=== PATIENT | male | born 1960 | race Two or more races ===

== ENCOUNTER → 2017-02-04 | Outpatient (REF) | payer BC ==
[2017-02-04 21:26] LABS: MEAN CORPUSCULAR HEMOGLOBIN 33.1 pg (27.0-33.0); MEAN CORPUSCULAR HGB CONC 34.1 g/dl (32.0-36.5); MEAN CORPUSCULAR VOLUME 97.1 fl (80.0-96.0); RED CELL DISTRIBUTION WIDTH 12.3 % (11.5-14.5); WHITE BLOOD COUNT 6.9 K/mm3 (4.0-10.0)
[2017-02-04 21:52] LABS: ALBUMIN/GLOBULIN RATIO 1.11 (1.00-1.93); ALKALINE PHOSPHATASE 93 U/L (45-117); ALT/SGPT 94 U/L (12-78); ANION GAP 7 MEQ/L (8-16); AST/SGOT 38 U/L (15-37); BILIRUBIN,TOTAL 0.5 MG/DL (0.2-1.0); BLOOD UREA NITROGEN 14 MG/DL (7-18); CALCIUM LEVEL 9.5 MG/DL (8.5-10.1); CARBON DIOXIDE LEVEL 30 MEQ/L (21-32); CHLORIDE LEVEL 105 MEQ/L (98-107); CHOLESTEROL LEVEL 239 MG/DL (<200); CREATININE FOR GFR 0.88 MG/DL (0.70-1.30); GLOMERULAR FILTRATION RATE > 60.0 (>56); GLUCOSE, FASTING 95 MG/DL (70-105); POTASSIUM SERUM 4.3 MEQ/L (3.5-5.1); SODIUM LEVEL 142 MEQ/L (136-145); TOTAL PROTEIN 7.6 GM/DL (6.4-8.2); TRIGLYCERIDES LEVEL 71 MG/DL (<150)
== END ==
LOC: M SFHCADAM 15:50
PROVIDERS: ATTEND Family Medicine
DX: I49.1 Atrial premature depolarization (principal); Z13.220 Encounter for screening for lipoid disorders
CPT/HCPCS: 80053; 80061; 84439; 84443; 85027; G0103

== ENCOUNTER → 2017-06-23 | Outpatient (CLI) | payer BC ==
[2017-06-23 21:08] LABS: BLOOD UREA NITROGEN 13 MG/DL (7-18); GLOMERULAR FILTRATION RATE > 60.0 (>56); URIC ACID 7.1 MG/DL (3.5-7.2)
== END ==
LOC: M ADAMS 13:31
PROVIDERS: ATTEND Physician Assistant Medical
DX: E78.5 Hyperlipidemia, unspecified (principal); M10.071 Idiopathic gout, right ankle and foot; M25.571 Pain in right ankle and joints of right foot

== ENCOUNTER → 2017-06-23 | Outpatient (REF) | payer BC | LOC: M SFHCADAM 13:42 | PROVIDERS: ATTEND Family Medicine | DX: E78.5 Hyperlipidemia, unspecified (principal) ==

== ENCOUNTER → 2017-11-05 | Outpatient (REF) | payer BC ==
[2017-11-05 13:27] LABS: MEAN CORPUSCULAR HEMOGLOBIN 32.1 pg (27.0-33.0); MEAN CORPUSCULAR HGB CONC 33.5 g/dl (32.0-36.5); MEAN CORPUSCULAR VOLUME 95.9 fl (80.0-96.0); PLATELET COUNT, AUTOMATED 197 10^3/uL (150-450); RED CELL DISTRIBUTION WIDTH 12.7 % (11.5-14.5); WHITE BLOOD COUNT 7.6 10^3/uL (4.0-10.0)
[2017-11-05 13:54] LABS: ALBUMIN 3.9 GM/DL (3.2-5.2); ALBUMIN/GLOBULIN RATIO 1.05 (1.00-1.93); ALKALINE PHOSPHATASE 103 U/L (45-117); ALT/SGPT 152 U/L (12-78); ANION GAP 7 MEQ/L (8-16); AST/SGOT 66 U/L (7-37); BILIRUBIN,TOTAL 0.5 MG/DL (0.2-1.0); BLOOD UREA NITROGEN 16 MG/DL (7-18); CALCIUM LEVEL 9.2 MG/DL (8.5-10.1); CARBON DIOXIDE LEVEL 29 MEQ/L (21-32); CHLORIDE LEVEL 103 MEQ/L (98-107); CHOLESTEROL LEVEL 176 MG/DL (<200); CREATININE FOR GFR 0.84 MG/DL (0.70-1.30); FREE T4 0.87 NG/DL (0.76-1.46); GLOMERULAR FILTRATION RATE > 60.0 (>56); GLUCOSE, FASTING 123 MG/DL (70-105); POTASSIUM SERUM 4.4 MEQ/L (3.5-5.1); SODIUM LEVEL 139 MEQ/L (136-145); TOTAL PROTEIN 7.6 GM/DL (6.4-8.2); TRIGLYCERIDES LEVEL 66 MG/DL (<150); URIC ACID 6.3 MG/DL (3.5-7.2)
== END ==
LOC: M SFHCADAM 10:16
PROVIDERS: ATTEND Family Medicine
DX: M10.9 Gout, unspecified (principal); E78.5 Hyperlipidemia, unspecified

== ENCOUNTER 2018-08-23 16:10 | Inpatient (IN) | payer BC ==
[2018-08-23 17:15] LABS: BASO % 0.1 % (0.0-1.0); HEMATOCRIT 46.1 % (42.0-52.0); HEMOGLOBIN 16.3 g/dl (13.5-17.5); IMMATURE GRANULOCYTE % 0.7 % (0-3.0); LYMPH # 1.3 10^3/uL (1.5-4.5); LYMPH % 4.7 % (24.0-44.0); MEAN CORPUSCULAR HGB CONC 35.4 g/dl (32.0-36.5); MONO # 0.8 10^3/uL (0.0-0.8); MONO % 3.1 % (0.0-5.0); NEUTROPHILS # 24.5 10^3/uL (1.8-7.7); NEUTROPHILS % 91.4 % (36.0-66.0); PLATELET COUNT, AUTOMATED 170 10^3/uL (150-450); RED CELL DISTRIBUTION WIDTH 12.3 % (11.5-14.5); WHITE BLOOD COUNT 26.8 10^3/uL (4.0-10.0)
[2018-08-23 17:42] LABS: INR 1.11; PROTHROMBIN TIME 14.4 SECONDS (12.1-14.4)
[2018-08-23 17:43] LABS: ALBUMIN 3.4 GM/DL (3.2-5.2); ALBUMIN/GLOBULIN RATIO 0.92 (1.00-1.93); ALKALINE PHOSPHATASE 89 U/L (45-117); ALT/SGPT 57 U/L (12-78); ANION GAP 11 MEQ/L (8-16); AST/SGOT 21 U/L (7-37); BILIRUBIN,DIRECT 0.4 MG/DL (0.0-0.2); BILIRUBIN,TOTAL 1.3 MG/DL (0.2-1.0); BLOOD UREA NITROGEN 14 MG/DL (7-18); CALCIUM LEVEL 9.2 MG/DL (8.5-10.1); CARBON DIOXIDE LEVEL 25 MEQ/L (21-32); CHLORIDE LEVEL 101 MEQ/L (98-107); CREATININE FOR GFR 1.15 MG/DL (0.70-1.30); GLOMERULAR FILTRATION RATE > 60.0 (>56); GLUCOSE, FASTING 126 MG/DL (70-100); LIPASE 126 U/L (73-393); POTASSIUM SERUM 4.3 MEQ/L (3.5-5.1); SODIUM LEVEL 137 MEQ/L (136-145); TOTAL PROTEIN 7.1 GM/DL (6.4-8.2)
[2018-08-23] MEDS: NS 1,000 ML IV ×2 (19:29→19:41)
[2018-08-23] MEDS ORDERED: ISOVUE-370 76% 100ML VIAL (Q9967) As Ordered (19:30)
[2018-08-23] MEDS: MORPHINE 4 MG/ML 1ML VIAL/SYRINGE (J2270) IV ×3 (19:31→22:25)
[2018-08-23] MEDS: ONDANSETRON 4MG/2ML VIAL (J2405) IV (19:32)
[2018-08-23] MEDS: GASTROGRAFIN SOLUTION 30ML PO ×2 (19:40→20:10)
[2018-08-23] MEDS: CIPROFLOXACIN 400 MG in APPROPRIATE DILUENT 1 EA IV ×2 (21:00→21:14)
[2018-08-23] MEDS: metroNIDAZOLE 500 MG in APPROPRIATE DILUENT 1 EA IV (21:14)
[2018-08-23] MEDS ORDERED: ONDANSETRON 4MG/2ML VIAL (J2405) IV (21:45)
[2018-08-23] MEDS ORDERED: PERCOCET 5MG/325MG TAB PO (21:45)
[2018-08-23] MEDS: PIPERACILLIN/TAZOBACTAM SOD 3.375 GM in D5W MINI-BAG PLUS 50 ML IV (22:26)
[2018-08-24] MEDS: LR 1,000 ML IV ×5 (00:04→23:23)
[2018-08-24] MEDS: KETOROLAC 30 MG/ML VIAL (J1885) IV ×4 (00:06→20:38)
[2018-08-24] MEDS: MORPHINE 4 MG/ML 1ML VIAL/SYRINGE (J2270) IV ×7 (02:04→23:09)
[2018-08-24] MEDS: PIPERACILLIN/TAZOBACTAM SOD 3.375 GM in D5W MINI-BAG PLUS 50 ML IV ×4 (04:11→23:12)
[2018-08-24] MEDS: ACETAMINOPHEN TAB 650MG DOSE (2X325MG) PO ×2 (04:29→09:28)
[2018-08-24 06:49] LABS: BASO % 0.2 % (0.0-1.0); EOS % 0.1 % (0.0-3.0); HEMATOCRIT 46.2 % (42.0-52.0); HEMOGLOBIN 15.6 g/dl (13.5-17.5); IMMATURE GRANULOCYTE % 1.2 % (0-3.0); LYMPH # 0.6 10^3/uL (1.5-4.5); LYMPH % 3.4 % (24.0-44.0); MEAN CORPUSCULAR HEMOGLOBIN 33.3 pg (27.0-33.0); MEAN CORPUSCULAR HGB CONC 33.8 g/dl (32.0-36.5); MEAN CORPUSCULAR VOLUME 98.5 fl (80.0-96.0); MONO # 0.5 10^3/uL (0.0-0.8); MONO % 3.3 % (0.0-5.0); NEUTROPHILS # 14.8 10^3/uL (1.8-7.7); NEUTROPHILS % 91.8 % (36.0-66.0); PLATELET COUNT, AUTOMATED 169 10^3/uL (150-450); RED BLOOD COUNT 4.69 10^6/uL (4.30-6.10); RED CELL DISTRIBUTION WIDTH 12.5 % (11.5-14.5); WHITE BLOOD COUNT 16.1 10^3/uL (4.0-10.0)
[2018-08-24 07:08] LABS: ANION GAP 8 MEQ/L (8-16); BLOOD UREA NITROGEN 22 MG/DL (7-18); CALCIUM LEVEL 8.5 MG/DL (8.5-10.1); CARBON DIOXIDE LEVEL 26 MEQ/L (21-32); CHLORIDE LEVEL 103 MEQ/L (98-107); GLOMERULAR FILTRATION RATE > 60.0 (>56); GLUCOSE, FASTING 131 MG/DL (70-100); POTASSIUM SERUM 4.2 MEQ/L (3.5-5.1); SODIUM LEVEL 137 MEQ/L (136-145)
[2018-08-24] MEDS: FLUBLOK(EGG FREE)(QUAD)INFLUENZA VACC 0.5ML SYRINGE (90682)18YRS&OLDER IM (09:14)
[2018-08-24] MEDS: ENOXAPARIN 40 MG/0.4 ML SYRINGE (J1650) SC (09:15)
[2018-08-24] MEDS: PERCOCET 5MG/325MG TAB PO ×2 (11:10→18:48)
[2018-08-25] MEDS: LR 1,000 ML IV ×4 (02:14→21:30)
[2018-08-25] MEDS: PERCOCET 5MG/325MG TAB PO (02:15)
[2018-08-25] MEDS: KETOROLAC 30 MG/ML VIAL (J1885) IV ×3 (03:15→23:35)
[2018-08-25] MEDS: PIPERACILLIN/TAZOBACTAM SOD 3.375 GM in D5W MINI-BAG PLUS 50 ML IV ×4 (05:56→23:11)
[2018-08-25 06:41] LABS: HEMATOCRIT 44.2 % (42.0-52.0); HEMOGLOBIN 15.2 g/dl (13.5-17.5); MEAN CORPUSCULAR HEMOGLOBIN 33.6 pg (27.0-33.0); MEAN CORPUSCULAR HGB CONC 34.4 g/dl (32.0-36.5); MEAN CORPUSCULAR VOLUME 97.6 fl (80.0-96.0); PLATELET COUNT, AUTOMATED 135 10^3/uL (150-450); RED BLOOD COUNT 4.53 10^6/uL (4.30-6.10); RED CELL DISTRIBUTION WIDTH 12.6 % (11.5-14.5); WHITE BLOOD COUNT 12.9 10^3/uL (4.0-10.0)
[2018-08-25 06:54] LABS: ADD MANUAL DIFFER YES; DIFF SLIDE NUMBER 71; POSITIVE MORPH POS FLAG
[2018-08-25 07:09] LABS: ANION GAP 8 MEQ/L (8-16); BLOOD UREA NITROGEN 31 MG/DL (7-18); CALCIUM LEVEL 8.6 MG/DL (8.5-10.1); CARBON DIOXIDE LEVEL 26 MEQ/L (21-32); CHLORIDE LEVEL 103 MEQ/L (98-107); CREATININE FOR GFR 1.34 MG/DL (0.70-1.30); GLOMERULAR FILTRATION RATE 58.3 (>56); GLUCOSE, FASTING 101 MG/DL (70-100); POTASSIUM SERUM 4.1 MEQ/L (3.5-5.1); SODIUM LEVEL 137 MEQ/L (136-145)
[2018-08-25 07:46] LABS: BANDS 1 % (< 11); BASOPHILS 44 % (0-4); LYMPHOCYTES 1 % (16-52); MONOCYTES 4 % (0-8); NEUTROPHILS 50 % (35-75); PLATELET ESTIMATE NORMAL (NORMAL)
[2018-08-25] MEDS: ENOXAPARIN 40 MG/0.4 ML SYRINGE (J1650) SC (09:32)
[2018-08-25] MEDS ORDERED: GLYCOPYRROLATE INJ 0.2 MG/ML 2 ML VIAL As Ordered (16:10)
[2018-08-25] MEDS ORDERED: PROPOFOL 200 MG/20 ML VIAL As Ordered (16:10)
[2018-08-25] MEDS ORDERED: LIDOCAINE 2% JELLY 30 ML As Ordered (16:10)
[2018-08-25] MEDS ORDERED: LIDOCAINE 2% INJ 100 MG/5 ML SDV (FOR ANES.) As Ordered (16:10)
[2018-08-25] MEDS ORDERED: dexameTHASONE 4 MG/ML 1ML VIAL (J1100) As Ordered (16:10)
[2018-08-25] MEDS ORDERED: ROCURONIUM BROMIDE 50 MG/5 ML VIAL As Ordered ×3 (16:10→19:57)
[2018-08-25] MEDS ORDERED: NEOSTIGMINE 10 MG/10 ML VIAL (J2710) As Ordered (16:10)
[2018-08-25] MEDS ORDERED: MIDAZOLAM INJ 2 MG/2 ML VIAL (J2250) As Ordered (16:10)
[2018-08-25] MEDS ORDERED: ONDANSETRON 4MG/2ML VIAL (J2405) As Ordered (16:10)
[2018-08-25] MEDS ORDERED: fentaNYL 100 MCG/2 ML INJECTION (J3010) As Ordered (16:10)
[2018-08-25] MEDS ORDERED: PHENYLEPHRINE INJ 10MG/ML VIAL (J2370) As Ordered (16:19)
[2018-08-25] MEDS ORDERED: HYDROmorphone HCL 2 MG/ML 1ML VIAL (J1170) As Ordered (17:09)
[2018-08-25] MEDS ORDERED: ZOSYN 3.375 GM VIAL (J2543) As Ordered (17:18)
[2018-08-25] MEDS ORDERED: LABETALOL HCL 100 MG/20 ML VIAL As Ordered (17:37)
[2018-08-25] MEDS ORDERED: fentaNYL 250 MCG/5 ML INJECTION (J3010) As Ordered (19:50)
[2018-08-25] MEDS ORDERED: fentaNYL 100 MCG/2 ML INJECTION (J3010) IV (21:30)
[2018-08-25] MEDS ORDERED: ONDANSETRON 4MG/2ML VIAL (J2405) IV (21:30)
[2018-08-25] MEDS ORDERED: MORPHINE 10 MG/ML 1ML VIAL (J2270) IV (21:30)
[2018-08-26] MEDS: PIPERACILLIN/TAZOBACTAM SOD 3.375 GM in D5W MINI-BAG PLUS 50 ML IV ×4 (05:20→22:35)
[2018-08-26] MEDS: LR 1,000 ML IV ×5 (06:23→22:36)
[2018-08-26 06:36] LABS: HEMATOCRIT 40.2 % (42.0-52.0); HEMOGLOBIN 14.1 g/dl (13.5-17.5); MEAN CORPUSCULAR HEMOGLOBIN 33.7 pg (27.0-33.0); MEAN CORPUSCULAR HGB CONC 35.1 g/dl (32.0-36.5); MEAN CORPUSCULAR VOLUME 95.9 fl (80.0-96.0); PLATELET COUNT, AUTOMATED 130 10^3/uL (150-450); RED BLOOD COUNT 4.19 10^6/uL (4.30-6.10); RED CELL DISTRIBUTION WIDTH 12.8 % (11.5-14.5); WHITE BLOOD COUNT 13.8 10^3/uL (4.0-10.0)
[2018-08-26 06:46] LABS: ADD MANUAL DIFFER YES; DIFF SLIDE NUMBER 52; POSITIVE MORPH POS FLAG
[2018-08-26 07:10] LABS: ATYPICAL LYMPH 3 % (0-5); BANDS 3 % (< 11); LYMPHOCYTES 2 % (16-52); METAMYELOCYTES 3 % (0-0); MONOCYTES 2 % (0-8); NEUTROPHILS 87 % (35-75); PLATELET CLUMPS SMALL AMT; PLATELET ESTIMATE NORMAL (NORMAL)
[2018-08-26 07:11] LABS: TOXIC GRANULATION 1+
[2018-08-26 07:41] LABS: ANION GAP 5 MEQ/L (8-16); BLOOD UREA NITROGEN 31 MG/DL (7-18); CARBON DIOXIDE LEVEL 28 MEQ/L (21-32); CHLORIDE LEVEL 104 MEQ/L (98-107); CREATININE FOR GFR 1.07 MG/DL (0.70-1.30); GLOMERULAR FILTRATION RATE > 60.0 (>56); GLUCOSE, FASTING 155 MG/DL (70-100); POTASSIUM SERUM 4.3 MEQ/L (3.5-5.1); SODIUM LEVEL 137 MEQ/L (136-145)
[2018-08-26] MEDS: OXAZEPAM 10 MG CAP PO ×2 (10:04→20:56)
[2018-08-26] MEDS: ENOXAPARIN 40 MG/0.4 ML SYRINGE (J1650) SC (10:04)
[2018-08-26] MEDS: KETOROLAC 30 MG/ML VIAL (J1885) IV ×2 (13:06→20:57)
[2018-08-26] MEDS: MORPHINE 10 MG/ML 1ML VIAL (J2270) IV (17:28)
[2018-08-27] MEDS: PIPERACILLIN/TAZOBACTAM SOD 3.375 GM in D5W MINI-BAG PLUS 50 ML IV ×4 (04:10→23:49)
[2018-08-27 05:32] LABS: HEMATOCRIT 36.7 % (42.0-52.0); HEMOGLOBIN 12.6 g/dl (13.5-17.5); MEAN CORPUSCULAR HGB CONC 34.3 g/dl (32.0-36.5); MEAN CORPUSCULAR VOLUME 96.1 fl (80.0-96.0); PLATELET COUNT, AUTOMATED 142 10^3/uL (150-450); RED BLOOD COUNT 3.82 10^6/uL (4.30-6.10); RED CELL DISTRIBUTION WIDTH 12.8 % (11.5-14.5); WHITE BLOOD COUNT 14.4 10^3/uL (4.0-10.0)
[2018-08-27 05:34] LABS: POSITIVE MORPH POS FLAG
[2018-08-27 05:35] LABS: ADD MANUAL DIFFER YES; DIFF SLIDE NUMBER 26
[2018-08-27 05:53] LABS: ATYPICAL LYMPH 2 % (0-5); LYMPHOCYTES 11 % (16-52); MONOCYTES 2 % (0-8); NEUTROPHILS 85 % (35-75); PLATELET ESTIMATE NORMAL (NORMAL)
[2018-08-27 05:56] LABS: TOXIC GRANULATION 1+
[2018-08-27 06:14] LABS: ANION GAP 6 MEQ/L (8-16); BLOOD UREA NITROGEN 34 MG/DL (7-18); CALCIUM LEVEL 8.8 MG/DL (8.5-10.1); CARBON DIOXIDE LEVEL 33 MEQ/L (21-32); CHLORIDE LEVEL 104 MEQ/L (98-107); GLOMERULAR FILTRATION RATE > 60.0 (>56); GLUCOSE, FASTING 117 MG/DL (70-100); POTASSIUM SERUM 3.9 MEQ/L (3.5-5.1); SODIUM LEVEL 143 MEQ/L (136-145)
[2018-08-27] MEDS: OXAZEPAM 10 MG CAP PO ×2 (07:47→20:15)
[2018-08-27] MEDS: PANTOPRAZOLE 40MG INJ (PROTONIX) (C9113) IV (07:48)
[2018-08-27] MEDS: PERCOCET 5MG/325MG TAB PO ×3 (07:48→23:35)
[2018-08-27] MEDS: ENOXAPARIN 40 MG/0.4 ML SYRINGE (J1650) SC (07:48)
[2018-08-27] MEDS: LR 1,000 ML IV (07:48)
[2018-08-27] MEDS: KCL 20MEQ IN D5/0.45NS 1000ML 1,000 ML IV ×2 (11:28→21:20)
[2018-08-27] MEDS: KETOROLAC 30 MG/ML VIAL (J1885) IV ×2 (11:57→20:15)
[2018-08-28] MEDS: KCL 20MEQ IN D5/0.45NS 1000ML 1,000 ML IV ×3 (03:00→16:58)
[2018-08-28] MEDS: PIPERACILLIN/TAZOBACTAM SOD 3.375 GM in D5W MINI-BAG PLUS 50 ML IV ×4 (04:26→23:16)
[2018-08-28 06:43] LABS: HEMATOCRIT 37.6 % (42.0-52.0); HEMOGLOBIN 13.2 g/dl (13.5-17.5); MEAN CORPUSCULAR HEMOGLOBIN 33.3 pg (27.0-33.0); MEAN CORPUSCULAR HGB CONC 35.1 g/dl (32.0-36.5); MEAN CORPUSCULAR VOLUME 94.9 fl (80.0-96.0); PLATELET COUNT, AUTOMATED 174 10^3/uL (150-450); RED BLOOD COUNT 3.96 10^6/uL (4.30-6.10); RED CELL DISTRIBUTION WIDTH 13.2 % (11.5-14.5); WHITE BLOOD COUNT 15.4 10^3/uL (4.0-10.0)
[2018-08-28 06:58] LABS: ADD MANUAL DIFFER YES; DIFF SLIDE NUMBER 15; POS COUNT POS FLAG; POSITIVE MORPH POS FLAG
[2018-08-28 07:05] LABS: ANION GAP 8 MEQ/L (8-16); BLOOD UREA NITROGEN 27 MG/DL (7-18); CALCIUM LEVEL 8.5 MG/DL (8.5-10.1); CARBON DIOXIDE LEVEL 27 MEQ/L (21-32); CHLORIDE LEVEL 105 MEQ/L (98-107); CREATININE FOR GFR 0.82 MG/DL (0.70-1.30); GLOMERULAR FILTRATION RATE > 60.0 (>56); GLUCOSE, FASTING 124 MG/DL (70-100); POTASSIUM SERUM 4.1 MEQ/L (3.5-5.1); SODIUM LEVEL 140 MEQ/L (136-145)
[2018-08-28 07:26] LABS: ATYPICAL LYMPH 3 % (0-5); BANDS 1 % (< 11); LYMPHOCYTES 16 % (16-52); MONOCYTES 3 % (0-8); NEUTROPHILS 77 % (35-75); PLATELET ESTIMATE NORMAL (NORMAL)
[2018-08-28] MEDS: PERCOCET 5MG/325MG TAB PO ×3 (08:20→20:15)
[2018-08-28] MEDS: OXAZEPAM 10 MG CAP PO ×2 (08:21→20:15)
[2018-08-28] MEDS: ENOXAPARIN 40 MG/0.4 ML SYRINGE (J1650) SC (08:21)
[2018-08-28] MEDS: PANTOPRAZOLE 40MG INJ (PROTONIX) (C9113) IV (08:21)
[2018-08-28] MEDS: KETOROLAC 30 MG/ML VIAL (J1885) IV ×2 (11:24→18:26)
[2018-08-29] MEDS: PERCOCET 5MG/325MG TAB PO ×4 (02:04→22:00)
[2018-08-29] MEDS: KCL 20MEQ IN D5/0.45NS 1000ML 1,000 ML IV ×3 (02:05→20:03)
[2018-08-29] MEDS: MORPHINE 10 MG/ML 1ML VIAL (J2270) IV (04:59)
[2018-08-29] MEDS: PIPERACILLIN/TAZOBACTAM SOD 3.375 GM in D5W MINI-BAG PLUS 50 ML IV ×4 (04:59→22:00)
[2018-08-29 06:51] LABS: HEMATOCRIT 39.7 % (42.0-52.0); HEMOGLOBIN 13.8 g/dl (13.5-17.5); MEAN CORPUSCULAR HEMOGLOBIN 33.3 pg (27.0-33.0); MEAN CORPUSCULAR HGB CONC 34.8 g/dl (32.0-36.5); MEAN CORPUSCULAR VOLUME 95.9 fl (80.0-96.0); PLATELET COUNT, AUTOMATED 200 10^3/uL (150-450); RED BLOOD COUNT 4.14 10^6/uL (4.30-6.10); RED CELL DISTRIBUTION WIDTH 13.3 % (11.5-14.5); WHITE BLOOD COUNT 18.6 10^3/uL (4.0-10.0)
[2018-08-29 06:54] LABS: ADD MANUAL DIFFER YES; DIFF SLIDE NUMBER 13; POS COUNT POS FLAG; POSITIVE MORPH POS FLAG
[2018-08-29 07:14] LABS: BANDS 2 % (< 11); EOSINOPHILS 2 % (0-5); LYMPHOCYTES 14 % (16-52); METAMYELOCYTES 2 % (0-0); MONOCYTES 3 % (0-8); MYELOCYTES 1 % (0-0); NEUTROPHILS 76 % (35-75); PLATELET ESTIMATE NORMAL (NORMAL)
[2018-08-29 07:24] LABS: ANION GAP 6 MEQ/L (8-16); BLOOD UREA NITROGEN 17 MG/DL (7-18); C REACTIVE PROTEIN QUANTITATIV 7.89 MG/DL (0.00-0.30); CALCIUM LEVEL 8.1 MG/DL (8.5-10.1); CARBON DIOXIDE LEVEL 25 MEQ/L (21-32); CHLORIDE LEVEL 105 MEQ/L (98-107); CREATININE FOR GFR 0.75 MG/DL (0.70-1.30); GLOMERULAR FILTRATION RATE > 60.0 (>56); GLUCOSE, FASTING 119 MG/DL (70-100); POTASSIUM SERUM 4.3 MEQ/L (3.5-5.1); SODIUM LEVEL 136 MEQ/L (136-145)
[2018-08-29] MEDS: OXAZEPAM 10 MG CAP PO ×2 (10:25→20:03)
[2018-08-29] MEDS: ENOXAPARIN 40 MG/0.4 ML SYRINGE (J1650) SC (10:26)
[2018-08-29] MEDS: PANTOPRAZOLE 40MG INJ (PROTONIX) (C9113) IV (10:26)
[2018-08-30] MEDS: KCL 20MEQ IN D5/0.45NS 1000ML 1,000 ML IV (04:52)
[2018-08-30] MEDS: PIPERACILLIN/TAZOBACTAM SOD 3.375 GM in D5W MINI-BAG PLUS 50 ML IV ×4 (04:52→23:07)
[2018-08-30] MEDS: PANTOPRAZOLE 40MG INJ (PROTONIX) (C9113) IV (09:26)
[2018-08-30] MEDS: ENOXAPARIN 40 MG/0.4 ML SYRINGE (J1650) SC (09:27)
[2018-08-30] MEDS: OXAZEPAM 10 MG CAP PO ×2 (09:27→20:01)
[2018-08-30] MEDS: PERCOCET 5MG/325MG TAB PO ×3 (09:29→23:06)
[2018-08-31] MEDS: PERCOCET 5MG/325MG TAB PO ×6 (04:36→21:51)
[2018-08-31] MEDS: PIPERACILLIN/TAZOBACTAM SOD 3.375 GM in D5W MINI-BAG PLUS 50 ML IV ×4 (04:36→23:12)
[2018-08-31 06:52] LABS: HEMATOCRIT 39.7 % (42.0-52.0); HEMOGLOBIN 13.7 g/dl (13.5-17.5); MEAN CORPUSCULAR HEMOGLOBIN 32.9 pg (27.0-33.0); MEAN CORPUSCULAR HGB CONC 34.5 g/dl (32.0-36.5); MEAN CORPUSCULAR VOLUME 95.4 fl (80.0-96.0); PLATELET COUNT, AUTOMATED 279 10^3/uL (150-450); RED BLOOD COUNT 4.16 10^6/uL (4.30-6.10); RED CELL DISTRIBUTION WIDTH 13.5 % (11.5-14.5); WHITE BLOOD COUNT 18.6 10^3/uL (4.0-10.0)
[2018-08-31 06:54] LABS: ADD MANUAL DIFFER YES; DIFF SLIDE NUMBER 98; POS COUNT POS FLAG; POSITIVE MORPH POS FLAG
[2018-08-31 07:13] LABS: EOSINOPHILS 2 % (0-5); LYMPHOCYTES 12 % (16-52); MONOCYTES 1 % (0-8); NEUTROPHILS 85 % (35-75)
[2018-08-31 07:14] LABS: ANION GAP 7 MEQ/L (8-16); BLOOD UREA NITROGEN 10 MG/DL (7-18); CALCIUM LEVEL 8.5 MG/DL (8.5-10.1); CARBON DIOXIDE LEVEL 24 MEQ/L (21-32); CHLORIDE LEVEL 104 MEQ/L (98-107); GLOMERULAR FILTRATION RATE > 60.0 (>56); GLUCOSE, FASTING 110 MG/DL (70-100); PLATELET ESTIMATE NORMAL (NORMAL); POTASSIUM SERUM 4.5 MEQ/L (3.5-5.1); SODIUM LEVEL 135 MEQ/L (136-145)
[2018-08-31] MEDS: GASTROGRAFIN SOLUTION 30ML PO ×2 (09:27→10:02)
[2018-08-31] MEDS: ENOXAPARIN 40 MG/0.4 ML SYRINGE (J1650) SC (09:28)
[2018-08-31] MEDS: PANTOPRAZOLE 40MG INJ (PROTONIX) (C9113) IV (09:28)
[2018-08-31] MEDS: OXAZEPAM 10 MG CAP PO ×2 (09:28→21:36)
[2018-08-31] MEDS ORDERED: ISOVUE-370 76% 100ML VIAL (Q9967) As Ordered (11:08)
[2018-08-31 17:23] LABS: C REACTIVE PROTEIN QUANTITATIV 8.89 MG/DL (0.00-0.30)
[2018-09-01] MEDS: PERCOCET 5MG/325MG TAB PO ×5 (02:35→22:44)
[2018-09-01] MEDS: PIPERACILLIN/TAZOBACTAM SOD 3.375 GM in D5W MINI-BAG PLUS 50 ML IV (04:44)
[2018-09-01 06:25] LABS: BASO # 0.1 10^3/uL (0.0-0.2); BASO % 0.5 % (0.0-1.0); EOS # 0.4 10^3/uL (0.0-0.50); EOS % 2.9 % (0.0-3.0); HEMATOCRIT 38.8 % (42.0-52.0); HEMOGLOBIN 13.5 g/dl (13.5-17.5); LYMPH # 1.8 10^3/uL (1.5-4.5); LYMPH % 12.9 % (24.0-44.0); MEAN CORPUSCULAR HEMOGLOBIN 33.2 pg (27.0-33.0); MEAN CORPUSCULAR HGB CONC 34.8 g/dl (32.0-36.5); MEAN CORPUSCULAR VOLUME 95.3 fl (80.0-96.0); MONO # 0.6 10^3/uL (0.0-0.8); MONO % 4.2 % (0.0-5.0); NEUTROPHILS # 10.5 10^3/uL (1.8-7.7); NEUTROPHILS % 74.5 % (36.0-66.0); PLATELET COUNT, AUTOMATED 300 10^3/uL (150-450); RED BLOOD COUNT 4.07 10^6/uL (4.30-6.10); RED CELL DISTRIBUTION WIDTH 13.4 % (11.5-14.5); WHITE BLOOD COUNT 14.1 10^3/uL (4.0-10.0)
[2018-09-01 06:44] LABS: ANION GAP 7 MEQ/L (8-16); BLOOD UREA NITROGEN 13 MG/DL (7-18); CALCIUM LEVEL 8.6 MG/DL (8.5-10.1); CARBON DIOXIDE LEVEL 26 MEQ/L (21-32); CHLORIDE LEVEL 103 MEQ/L (98-107); CREATININE FOR GFR 0.77 MG/DL (0.70-1.30); GLOMERULAR FILTRATION RATE > 60.0 (>56); GLUCOSE, FASTING 122 MG/DL (70-100); POTASSIUM SERUM 4.4 MEQ/L (3.5-5.1); SODIUM LEVEL 136 MEQ/L (136-145)
[2018-09-01] MEDS: PANTOPRAZOLE 40MG INJ (PROTONIX) (C9113) IV (08:38)
[2018-09-01] MEDS: ENOXAPARIN 40 MG/0.4 ML SYRINGE (J1650) SC (08:38)
[2018-09-01] MEDS: CIPROFLOXACIN 500 MG TAB PO ×2 (08:38→18:20)
[2018-09-01] MEDS: metroNIDAZOLE (FLAGYL) 500 MG TAB PO ×3 (08:39→20:17)
[2018-09-01] MEDS: OXAZEPAM 10 MG CAP PO (10:36)
[2018-09-01] MEDS: METAMUCIL (PSYLLIUM) PACKET PO ×2 (10:55→20:17)
[2018-09-01] MEDS: MORPHINE 10 MG/ML 1ML VIAL (J2270) IV (10:55)
[2018-09-02] MEDS: PERCOCET 5MG/325MG TAB PO ×4 (05:06→22:23)
[2018-09-02] MEDS: CIPROFLOXACIN 500 MG TAB PO ×2 (05:06→17:30)
[2018-09-02] MEDS: metroNIDAZOLE (FLAGYL) 500 MG TAB PO ×3 (05:06→20:29)
[2018-09-02 06:28] LABS: BASO % 0.3 % (0.0-1.0); EOS # 0.3 10^3/uL (0.0-0.50); EOS % 2.5 % (0.0-3.0); HEMATOCRIT 39.2 % (42.0-52.0); HEMOGLOBIN 13.4 g/dl (13.5-17.5); IMMATURE GRANULOCYTE % 2.1 % (0-3.0); LYMPH # 1.5 10^3/uL (1.5-4.5); LYMPH % 10.9 % (24.0-44.0); MEAN CORPUSCULAR HEMOGLOBIN 32.7 pg (27.0-33.0); MEAN CORPUSCULAR HGB CONC 34.2 g/dl (32.0-36.5); MEAN CORPUSCULAR VOLUME 95.6 fl (80.0-96.0); MONO # 0.6 10^3/uL (0.0-0.8); MONO % 4.2 % (0.0-5.0); NEUTROPHILS # 10.9 10^3/uL (1.8-7.7); PLATELET COUNT, AUTOMATED 378 10^3/uL (150-450); RED CELL DISTRIBUTION WIDTH 13.1 % (11.5-14.5); WHITE BLOOD COUNT 13.6 10^3/uL (4.0-10.0)
[2018-09-02 06:54] LABS: ANION GAP 6 MEQ/L (8-16); BLOOD UREA NITROGEN 14 MG/DL (7-18); CARBON DIOXIDE LEVEL 27 MEQ/L (21-32); CHLORIDE LEVEL 102 MEQ/L (98-107); CREATININE FOR GFR 0.72 MG/DL (0.70-1.30); GLOMERULAR FILTRATION RATE > 60.0 (>56); GLUCOSE, FASTING 120 MG/DL (70-100); POTASSIUM SERUM 4.1 MEQ/L (3.5-5.1); SODIUM LEVEL 135 MEQ/L (136-145)
[2018-09-02] MEDS: PANTOPRAZOLE 40MG INJ (PROTONIX) (C9113) IV (08:43)
[2018-09-02] MEDS: METAMUCIL (PSYLLIUM) PACKET PO ×2 (08:43→20:29)
[2018-09-02] MEDS: ENOXAPARIN 40 MG/0.4 ML SYRINGE (J1650) SC (08:43)
[2018-09-02] MEDS: MORPHINE 10 MG/ML 1ML VIAL (J2270) IV ×2 (12:18→17:38)
[2018-09-03] MEDS: PERCOCET 5MG/325MG TAB PO (03:12)
[2018-09-03] MEDS: CIPROFLOXACIN 500 MG TAB PO (05:15)
[2018-09-03] MEDS: metroNIDAZOLE (FLAGYL) 500 MG TAB PO (05:16)
[2018-09-03 06:53] LABS: BASO # 0.1 10^3/uL (0.0-0.2); BASO % 0.4 % (0.0-1.0); EOS # 0.3 10^3/uL (0.0-0.50); EOS % 2.2 % (0.0-3.0); HEMATOCRIT 39.6 % (42.0-52.0); HEMOGLOBIN 13.5 g/dl (13.5-17.5); IMMATURE GRANULOCYTE % 1.2 % (0-3.0); LYMPH # 1.6 10^3/uL (1.5-4.5); LYMPH % 14.3 % (24.0-44.0); MEAN CORPUSCULAR HEMOGLOBIN 32.8 pg (27.0-33.0); MEAN CORPUSCULAR HGB CONC 34.1 g/dl (32.0-36.5); MEAN CORPUSCULAR VOLUME 96.4 fl (80.0-96.0); MONO # 0.6 10^3/uL (0.0-0.8); MONO % 5.6 % (0.0-5.0); NEUTROPHILS # 8.6 10^3/uL (1.8-7.7); NEUTROPHILS % 76.3 % (36.0-66.0); PLATELET COUNT, AUTOMATED 420 10^3/uL (150-450); RED BLOOD COUNT 4.11 10^6/uL (4.30-6.10); RED CELL DISTRIBUTION WIDTH 13.2 % (11.5-14.5); WHITE BLOOD COUNT 11.3 10^3/uL (4.0-10.0)
[2018-09-03] MEDS: ENOXAPARIN 40 MG/0.4 ML SYRINGE (J1650) SC (09:00)
[2018-09-03] MEDS: PANTOPRAZOLE 40MG INJ (PROTONIX) (C9113) IV (09:11)
[2018-09-03] MEDS: METAMUCIL (PSYLLIUM) PACKET PO (09:11)
== END 2018-09-03 12:21 | disposition home health service (06) | DRG 221 ==
LOC: M ED 16:10 → M ED INP 21:33 → M MSPAV 23:43
PROC: 0DBN0ZZ Excision of Sigmoid Colon, Open Approach (ICD-10-PCS; principal; 2018-08-25 12:20)
PROC: 0D1M0J4 Bypass Descending Colon to Cutaneous with Synthetic Substitute, Open Approach (ICD-10-PCS; 2018-08-25 12:20)
DX: K57.20 Diverticulitis of large intestine with perforation and abscess without bleeding (principal); K55.049 Acute infarction of large intestine, extent unspecified; Z68.41 Body mass index [BMI] 40.0-44.9, adult; E66.01 Morbid (severe) obesity due to excess calories; J43.9 Emphysema, unspecified; K56.7 Ileus, unspecified; I10 Essential (primary) hypertension; F41.9 Anxiety disorder, unspecified; M10.9 Gout, unspecified; F17.210 Nicotine dependence, cigarettes, uncomplicated; F10.10 Alcohol abuse, uncomplicated; Z89.422 Acquired absence of other left toe(s); Z79.899 Other long term (current) drug therapy

== ENCOUNTER 2018-09-12 13:13 | Emergency (ER) | payer BC ==
[2018-09-12] MEDS: MAGNESIUM CITRATE 300 ML BTL PO (15:45)
== END 2018-09-12 15:55 | disposition home or self-care (01) ==
LOC: M ED 13:13
DX: K59.00 Constipation, unspecified (principal); Z98.890 Other specified postprocedural states; Z87.891 Personal history of nicotine dependence; Z93.3 Colostomy status; Z79.899 Other long term (current) drug therapy; Z79.2 Long term (current) use of antibiotics
CPT/HCPCS: 76705

== ENCOUNTER → 2018-10-01 | Outpatient (CLI) | payer SELFPAY, BC ==
[~2018-10-01] MED LIST: GASTROGRAFIN SOLUTION 30ML (Q9963) As Ordered; ISOVUE-370 76% 100ML VIAL (Q9967) As Ordered
[2018-10-01 10:11] LABS: BASO # 0.1 10^3/uL (0.0-0.2); BASO % 1.1 % (0.0-1.0); EOS # 0.2 10^3/uL (0.0-0.50); EOS % 2.6 % (0.0-3.0); IMMATURE GRANULOCYTE % 0.1 % (0-3.0); LYMPH # 1.9 10^3/uL (1.5-4.5); LYMPH % 25.6 % (24.0-44.0); MEAN CORPUSCULAR HEMOGLOBIN 31.2 pg (27.0-33.0); MEAN CORPUSCULAR HGB CONC 32.6 g/dl (32.0-36.5); MEAN CORPUSCULAR VOLUME 95.6 fl (80.0-96.0); MONO # 0.7 10^3/uL (0.0-0.8); MONO % 8.9 % (0.0-5.0); NEUTROPHILS # 4.5 10^3/uL (1.8-7.7); NEUTROPHILS % 61.7 % (36.0-66.0); PLATELET COUNT, AUTOMATED 279 10^3/uL (150-450); RED BLOOD COUNT 4.81 10^6/uL (4.30-6.10); RED CELL DISTRIBUTION WIDTH 12.7 % (11.5-14.5); WHITE BLOOD COUNT 7.3 10^3/uL (4.0-10.0)
[2018-10-01 10:36] LABS: ALBUMIN 3.2 GM/DL (3.2-5.2); ALBUMIN/GLOBULIN RATIO 0.76 (1.00-1.93); ALKALINE PHOSPHATASE 75 U/L (45-117); ALT/SGPT 43 U/L (12-78); ANION GAP 8 MEQ/L (8-16); AST/SGOT 27 U/L (7-37); BILIRUBIN,TOTAL 0.5 MG/DL (0.2-1.0); BLOOD UREA NITROGEN 11 MG/DL (7-18); C REACTIVE PROTEIN QUANTITATIV 0.36 MG/DL (0.00-0.30); CALCIUM LEVEL 9.6 MG/DL (8.5-10.1); CARBON DIOXIDE LEVEL 29 MEQ/L (21-32); CHLORIDE LEVEL 106 MEQ/L (98-107); CREATININE FOR GFR 0.81 MG/DL (0.70-1.30); GLOMERULAR FILTRATION RATE > 60.0 (>56); GLUCOSE, FASTING 99 MG/DL (70-100); POTASSIUM SERUM 4.6 MEQ/L (3.5-5.1); SODIUM LEVEL 143 MEQ/L (136-145); TOTAL PROTEIN 7.4 GM/DL (6.4-8.2)
== END ==
LOC: M RAD 08:33
DX: K57.12 Diverticulitis of small intestine without perforation or abscess without bleeding (principal); Z90.49 Acquired absence of other specified parts of digestive tract; Z93.3 Colostomy status
CPT/HCPCS: Q9963

== ENCOUNTER → 2018-12-21 | Outpatient (CLI) | payer BC ==
[~2018-12-21] MED LIST changes: +CIPR-249 PO; +FLAG500T PO; -GASTROGRAFIN SOLUTION 30ML (Q9963) As Ordered; +GASTROGRAFIN SOLUTION 30ML (Q9963) As Ordered ONE; -ISOVUE-370 76% 100ML VIAL (Q9967) As Ordered; +ISOVUE-370 76% 100ML VIAL (Q9967) As Ordered ONE; +MAGNSOL18 PO; +META1POW PO; +PERCOCET PO; +STOOL SOFTNERS
--- NOTE | 2018-12-22 06:39 | REP ---
Clinical: History of prior diverticulitis with partial left hemicolectomy and ostomy. Technique: Axial contrast enhanced images from the lung bases to the pubic symphysis using oral (per protocol) and 100 ml Isovue 370 intravenous contrast material with coronal and sagittal re-formations. Comparison: 10/01/2018. Findings: Lung bases are clear. Visualized heart and pericardium normal. Liver, spleen, pancreas, gallbladder, bilateral adrenal glands and kidneys are normal. Evaluation of the enteric system demonstrates prior left hemicolectomy with ostomy via the left anterior abdominal wall. There is increasing eventration of the rectus sheath. There is no evidence for bowel obstruction or acute inflammatory process. Normal terminal ileum and appendix identified in the right lower quadrant. Pelvis demonstrates normal bladder and age appropriate prostate/seminal vesicles. No ascites. No free air. No adenopathy. Atherosclerotic changes of the aorta and vasculature without aneurysm or dissection. Musculoskeletal structures are intact and without focal osseous abnormality. Impression: 1. Status post left hemicolectomy and ostomy without bowel obstruction or acute inflammatory process. 2. Increasing eventration of the rectus sheath. 3. No acute abdominopelvic pathology appreciated. Specifically, no ascites, focal inflammatory stranding or adenopathy noted. Electronically Signed by Willy Carcamo MD 12/22/2018 06:32 A
== END ==
LOC: M RAD 13:06
PROVIDERS: ATTEND Surgery
DX: K57.20 Diverticulitis of large intestine with perforation and abscess without bleeding (principal); Z93.3 Colostomy status; Z90.49 Acquired absence of other specified parts of digestive tract
CPT/HCPCS: 74177; Q9963; Q9967

== ENCOUNTER 2019-01-12 07:53 | Day surgery (SDC) | payer BC ==
[~2019-01-12] VITALS: Ht 170.2 cm; Wt 100.7 kg
[~2019-01-12 07:53] MED LIST changes: -GASTROGRAFIN SOLUTION 30ML (Q9963) As Ordered ONE; -ISOVUE-370 76% 100ML VIAL (Q9967) As Ordered ONE; +LIDOCAINE 2% INJ 100 MG/5 ML SDV (FOR ANES.) As Ordered ONE; +NS 1,000 ML IV ONE; +PROPOFOL 200 MG/20 ML VIAL As Ordered ONE
[2019-01-12] MEDS ORDERED: PROPOFOL 200 MG/20 ML VIAL As Ordered ONE (10:09)
--- NOTE | 2019-01-12 10:20 | ROOR ---
Patient Name: Carlos Alberto Roberts Procedure Date: 01/12/2019 9:45 AM Date of : 1960 Age: 58 Room: [facility] Gender: Male Note Status: Finalized Procedure: Colonoscopy Indications: Follow-up of diverticulitis Providers: Harsha Baker MD Referring MD: Rudolph Gorman MD Requesting Provider: Medicines: Monitored Anesthesia Care Complications: No immediate complications. Procedure: Pre-Anesthesia Assessment: - Prior to the procedure, a History and Physical was performed, and patient medications and allergies were reviewed. The patient is competent. The risks and benefits of the procedure and the sedation options and risks were discussed with the patient. All questions were answered and informed consent was obtained. Patient identification and proposed procedure were verified by the physician, the nurse and the anesthesiologist in the endoscopy suite. Mental Status Examination: alert and oriented. Airway Examination: normal oropharyngeal airway and neck mobility. Respiratory Examination: clear to auscultation. CV Examination: normal. Prophylactic Antibiotics: The patient does not require prophylactic antibiotics. Prior Anticoagulants: The patient has taken no previous anticoagulant or antiplatelet agents. ASA Grade Assessment: II - A patient with mild systemic disease. After reviewing the risks and benefits, the patient was deemed in satisfactory condition to undergo the procedure. The anesthesia plan was to use monitored anesthesia care (MAC). Immediately prior to administration of medications, the patient was re-assessed for adequacy to receive sedatives. The heart rate, respiratory rate, oxygen saturations, blood pressure, adequacy of pulmonary ventilation, and response to care were monitored throughout the procedure. The physical status of the patient was re-assessed after the procedure. The Colonoscope was introduced through the sigmoid colostomy and advanced to the cecum, identified by appendiceal orifice and ileocecal valve. The colonoscopy was somewhat difficult due to colostomy retracted underneath skin. The patient tolerated the procedure well. The quality of the bowel preparation was good. Findings: The perianal and digital rectal examinations were normal. A few small-mouthed diverticula were found in the descending colon. A diminutive polyp was found in the descending colon. The polyp was sessile. The polyp was removed with a cold snare. Resection and retrieval were complete. Estimated blood loss was minimal. No biopsies or other specimens were collected for this exam. Colonoscopy through the anus done to evaluate length of the rectal stump. Stump measures to 25 cms, slight mucosal irritation, otherwise normal No additional abnormalities were found on retroflexion. Impression: - Diverticulosis in the descending colon. - One diminutive polyp in the descending colon, removed with a cold snare. Resected and retrieved. No specimens collected. Recommendation: - Discharge patient to home (ambulatory). - Return to my office in 2 weeks. Harsha Baker MD Harsha Baker MD 01/12/2019 10:19:42 AM This report has been signed electronically. Number of Addenda: 0 Note Initiated On: 01/12/2019 9:45 AM Estimated Blood Loss: Estimated blood loss was minimal.
[2019-01-12 10:30] VITALS: BP 129/81
== END 2019-01-12 10:40 | disposition home or self-care (01) ==
LOC: M OPP 07:53
PROVIDERS: ATTEND Surgery
DX: Z87.19 Personal history of other diseases of the digestive system (principal); K57.30 Diverticulosis of large intestine without perforation or abscess without bleeding; K57.32 Diverticulitis of large intestine without perforation or abscess without bleeding; D12.4 Benign neoplasm of descending colon; Z93.3 Colostomy status; F17.210 Nicotine dependence, cigarettes, uncomplicated; Z09 Encounter for follow-up examination after completed treatment for conditions other than malignant neoplasm

== ENCOUNTER 2019-02-07 07:09 | Inpatient (IN) | payer BC ==
[~2019-02-07] VITALS: Ht 170.2 cm; Wt 95.6 kg
[~2019-02-07 07:09] MED LIST changes: -LIDOCAINE 2% INJ 100 MG/5 ML SDV (FOR ANES.) As Ordered ONE; -NS 1,000 ML IV ONE; -PROPOFOL 200 MG/20 ML VIAL As Ordered ONE
[2019-02-07] MEDS ORDERED: HEPARIN SOD (PORCINE) 5000 UNITS/ML VIAL SQ ONE (07:30)
[2019-02-07] MEDS ORDERED: metroNIDAZOLE 500 MG in APPROPRIATE DILUENT 1 EA IV ONE (07:30)
[2019-02-07] MEDS ORDERED: ALVIMOPAN 12 MG CAPSULE (ENTEREG) PO ONE (07:30)
[2019-02-07] MEDS ORDERED: cefoTEtan DISODIUM 2 GM in D5W MINI-BAG PLUS 50 ML IV ONE (07:30)
[2019-02-07] MEDS ORDERED: METR-201 (07:41)
[2019-02-07] MEDS ORDERED: SUPRSOL2 (07:41)
[2019-02-07] MEDS ORDERED: NEOM500T (07:41)
[2019-02-07] MEDS: LR 1,000 ML IV SCH ×2 (07:44→15:41)
[2019-02-07] MEDS ORDERED: BUPIVACAINE HCL 0.25% 30 ML VIAL As Ordered ONE ×2 (08:10→12:29)
[2019-02-07] MEDS ORDERED: LIDOCAINE 1% MDV 20ML VIAL As Ordered ONE (08:10)
[2019-02-07] MEDS ORDERED: LIDOCAINE 1% SDV INJ 30 ML VIAL As Ordered ONE (08:44)
[2019-02-07] MEDS ORDERED: PHENYLephrine HCL 500 MCG/5 ML (100MCG/ML) SYRINGE (J2370) As Ordered ONE (09:30)
[2019-02-07] MEDS ORDERED: HYDROmorphone HCL 2 MG/ML 1ML VIAL (J1170) As Ordered ONE (09:30)
[2019-02-07] MEDS ORDERED: SUGAMMADEX SODIUM 500 MG/5 ML VIAL (BRIDION) As Ordered ONE (09:30)
[2019-02-07] MEDS ORDERED: LIDOCAINE 2% INJ 100 MG/5 ML SDV (FOR ANES.) As Ordered ONE (09:30)
[2019-02-07] MEDS ORDERED: ONDANSETRON 4MG/2ML VIAL (J2405) As Ordered ONE (09:30)
[2019-02-07] MEDS ORDERED: fentaNYL 250 MCG/5 ML INJECTION (J3010) As Ordered ONE (09:30)
[2019-02-07] MEDS ORDERED: PROPOFOL 200 MG/20 ML VIAL As Ordered ONE (09:30)
[2019-02-07] MEDS ORDERED: ROCURONIUM BROMIDE 50 MG/5 ML VIAL As Ordered ONE ×2 (09:30→11:01)
[2019-02-07] MEDS ORDERED: MIDAZOLAM INJ 2 MG/2 ML VIAL (J2250) As Ordered ONE (09:30)
[2019-02-07] MEDS ORDERED: dexameTHASONE 4 MG/ML 1ML VIAL (J1100) As Ordered ONE (09:30)
[2019-02-07] MEDS ORDERED: KETOROLAC 60 MG/2 ML VIAL (J1885) As Ordered ONE (09:30)
[2019-02-07] MEDS ORDERED: ACETAMINOPHEN 1000MG 100ML IV BTL (OFIRMEV) (J0131 PER 10MG) As Ordered ONE (09:30)
[2019-02-07] MEDS ORDERED: GLUCAGON FOR INJ 1 MG VIAL (J1610) As Ordered ONE (12:21)
[2019-02-07] MEDS ORDERED: cefoTEtan INJ 1GM VIAL (S0074 PER 500MG) As Ordered ONE (12:22)
[2019-02-07] MEDS ORDERED: cefoTEtan INJ 2GM VIAL (S0074 PER 500MG) As Ordered ONE (12:22)
[2019-02-07] MEDS ORDERED: BUPIVACAINE LIPOSOME/PF 1.3% 20ML VIAL (13.3MG/ML)(EXPAREL)(C9290 PER1MG) As Ordered ONE (12:29)
[2019-02-07] MEDS ORDERED: ONDANSETRON 4MG/2ML VIAL (J2405) IV PRN (14:15)
[2019-02-07] MEDS ORDERED: ACETAMINOPHEN TAB 650MG DOSE (2X325MG) PO PRN (14:15)
[2019-02-07] MEDS ORDERED: MORPHINE 4 MG/ML 1ML VIAL/SYRINGE (J2270) IV PRN (14:15)
[2019-02-07] MEDS ORDERED: NORCO, ANEXSIA 5/325MG TABLET (HYDROcodone/ACETAMINOPHEN) As Ordered ONE (14:27)
[2019-02-07] MEDS ORDERED: fentaNYL 100 MCG/2 ML INJECTION (J3010) As Ordered ONE (14:33)
[2019-02-07] MEDS: fentaNYL 100 MCG/2 ML INJECTION (J3010) IV PRN ×4 (14:35→14:51)
[2019-02-07] MEDS ORDERED: LR 1,000 ML IV SCH (14:45)
[2019-02-07] MEDS ORDERED: NORCO, ANEXSIA 5/325MG TABLET (HYDROcodone/ACETAMINOPHEN) PO PRN (14:45)
[2019-02-07] MEDS ORDERED: MEPERIDINE INJ 25 MG/ML VIAL (J2175) IV PRN (15:00)
[2019-02-07] MEDS ORDERED: HYDROMORPHONE HCL 0.5 MG/ 0.5 ML SYRINGE (J1170 PER 1) IV PRN (15:00)
[2019-02-07 15:30] VITALS: BP 167/99
[2019-02-07 16:00] VITALS: BP 168/98
[2019-02-07 17:00] VITALS: BP 167/97
[2019-02-07] MEDS: PERCOCET 5MG/325MG TAB PO PRN (17:04)
[2019-02-07 18:00] VITALS: BP 167/97
[2019-02-07 19:00] VITALS: BP 162/93
[2019-02-07 20:00] VITALS: BP 164/90
[2019-02-07] MEDS: SENOKOT S TAB PO SCH (20:39)
[2019-02-07] MEDS: KETOROLAC 30 MG/ML VIAL (J1885) IV PRN (20:39)
[2019-02-07] MEDS: ALVIMOPAN 12 MG CAPSULE (ENTEREG) PO SCH (20:39)
[2019-02-07] MEDS: HEPARIN SOD (PORCINE) 5000 UNITS/ML VIAL SC SCH (21:09)
--- NOTE | 2019-02-07 21:19 | ROOPDOC ---
[facility] Report Of Operation Report of Operation DATE OF PROCEDURE: 02/07/19 PREPROCEDURE DIAGNOSES: Colostomy Status, History of Perforated Diverticulitis. POSTPROCEDURE DIAGNOSES: same, wide disastases of rectus muscle, ventral hernia. PROCEDURE: Laparoscopic Assisted Reversal of Colostomy, End to End Proctocolic Anastomosis Laparoscopic Lysis of Adhesions Laparoscopic Takedown of Splenic Flexure. SURGEON: Harsha Baker MD SPECIAL EDUCATION SUPERINTENDENT: Ritesh Maldonado MD ANESTHESIA: General Anesthesia. ESTIMATED BLOOD LOSS: Approximately 100 mL. COMPLICATIONS: none. REMARKS: omentum adhered to the abdominal wall, multiple small bowel adhesions to the pelvis lysed, wide diastases of the midline muscles extending from epigastrium to symphysis pubis. multiple sweese cheese hernia defects above umbilicus at the midline. . PROCEDURE NOTE: DESCRIPTION OF PROCEDURE: . Patient received 2 g of cefotetan IV and 500 mg of metronidazole IV preoperatively for surgical wound prophylaxis, heparin 5000 units subcutaneously for DVT prophylaxis and a dose of Entereg 12 mg by mouth for postoperative nausea prevention. He was brought to the operating room laid supine on the table, TEDs stockings and sequential compression boots placed in both lower extremities for DVT prophylaxis. Gen. endotracheal anesthesia started. He was placed in Finn stirrups in the lithotomy position and a Michael catheter was placed for urine output monitoring. Nurse reports difficulty in passing an 16 Salvadorean Michael catheter and a 14 Salvadorean Michael catheter was placed instead without difficulty. I sutured close his left lower quadrant colostomy with 3-0 silk. His abdomen and perineal area was then prepped and draped in the usual sterile fashion.m We paused for a surgical timeout using both pre-incision safety checklist to verify correct patient, procedure site and additional clinical information prior to beginning the procedure. We began the procedure with a left upper quadrant incision. A Veress needle was inserted in a controlled fashion. Intra-abdominal placement confirmed with saline drop technique. CO2 insufflation was then started to pressure of 15 mmHg. there was a prominent upper abdominal distention more than the lower abdomen and the left distended more than the right side of the abdomen initially. Using the same incision a 5 mm Visiport was placed under direct vision of laparoscope. On entry to us noted that there were omentum adhered to the abdominal wall preventing adequate visualization across the midline. I maneuvered the laparoscope above the liver edge to visualize the right side of the abdomen. Another 5 mm port was placed over the right upper quadrant area under direct visualization. With this 2 ports I began lysing the omental adhesions at the midline. A 5 mm 30 laparoscope was used. He was placed on a Trendelenburg position with the left side tilted up and I started working with the midline omental adhesions going towards the right upper quadrant area. After taking down the midline adhesions to the falciform ligament and anterior abdominal wall, he was then placed on a right side up position and worked on the omental adhesions over right lower quadrant area as well as some of the bowel adhesions to that area. Once this was cleared another five mm port was placed. Using these three ports the rest of the omental adhesions was taken down at the midline, agapito und the area of diastases and the area surrounding the colostomy in the left lower quadrant area. He has a wide area of diastases extending from the epigastric into what looked like the symphysis pubis. The left lower quadrant ostomy is just slightly lateral to the medial side of the rectus muscle on the left side. There are a few [place] cheese like defects within the diastases con sistent with ventral hernia. Once the anterior abdominal wall was cleared of omentum and small bowel including the area of diastases and lateral to it the patient was placed in the left tilt up and a steeper Trendelenburg position I started working freeing up the bowels adhered to the pelvis. After doing so I proceeded freeing up the adhered bowels to the pelvic sidewalls on both sides which again proved difficult there is dense amount of adhesions to the pelvic sidewalls on both left and right side. The appendix as well as the cecum was also noted to be dropping into the pelvis. He was placed on the steeper Trendelenburg position to help retract the bowels away. Once this was completed the rectal stump was likewise freed up both medially and laterally from its adhesions to the pelvic sidewall as well as to the bladder. Once this was freed up fully have noted that there is an adequate length of the rectal pouch which actually extends to the top portion of the pelvis. At this point I turned my attention back to the colostomy. This is been fairly skeletonized with no other structures attached to it up to the abdominal wall. I decided to take on the colostomy from the abdominal wall. I converted 5 mm right lower quadrant port to a 12 mm port to accommodate a laparoscopic stapler. Using an echelon 60 mm stapler with a hemoglobin load, the colostomy was divided at the level of the abdominal wall. Starting form this then I started to free up the lateral attachments of the descending colon along the line of Toldt. The rest of the omental adhesions to the anterior lateral abdominal wall was likewise taken down. There were some adhesions of the omentum to the descending colon that is pulling this back up which I also took down. Despite this there was not enough length to pull the colon down to the pelvis. To be able to do this he'll need to perform a full splenic flexure takedown. The patient was repositioned and a reverse Trendelenburg position. I continued the lateral dissection up to the splenic flexure close to the lower pole of the spleen. The rest of lateral and posterior attachments gross fascia was subsequently taken down with both blunt and sharp dissection to rotate the left colon medially. Then started at about the midportion transverse colon taking down the gastrocolic omentum from the superior portion of the transverse colon going towards from the midline to the splenic flexure meeting the previous dissection point and taking down the attachments of the splenic flexure to the spleen, stomach and posterior retroperitoneal structures. In doing so, again allowing us to pull down the stump of the left colon to the pelvis. The patient was placed back on a Trendelenburg position. The rectal stump and the left colon stump meets well without any tension with some extra length. I then deflated the abdomen and worked on taking down the colostomy. A cruciate skin incision around the skin adjacent to the colostomy is created and the colostomy was circumferentially dissected free from surrounding adipose tissue until we reached the fascia. The fascia was opened up and its attachments to the rectus muscles was likewise circumferentially dissected. We then were able to enter the abdomen laterally and this I proceeded disconnecting the rest of the attachments of the colon stump. I pulled up the stump of the descending colon off from the colostomy incision. Many Farms were opened up under a controlled man ner. The EEA sizers were used and this seems to be able to accommodate a 29 mm EEA stapler which I chose. I asked anesthesia to give glucagon 1 mg IV to allow for relaxation of the bowel. I inserted this into the lumen with the spike out toward enclosed the colotomy with a 3-0 Prolene in a pursestring fashion and trimmed the surrounding adipose tissue that may interfere with the firing of the stapler. The colon was returned into the abdomen. I then closed the fascial incision using 1 Vicryl along the colostomy to resume laparoscopy. Laparoscopy was resumed . The left colon and rectal stump was lined up. The contact center assistant then went down and transrectally inserted initially the EEA sizers. There was too much length on the rectal stump that the EEA sizers did not reach the end of the stump likewise when he were trying the EEA stapler and seltzers a portion of the rectum that slightly strictured. I continued to dissect this and free this up from the lateral attachments to release the stricture but I could not pass the stapler the end the area. As a decided to trim the rectal stump at this point for the stricture is located using the echelon 60 mm stapler. The 2 ends continued to be able to meet without any tension. The EEA's stapler was then positioned and the spike pushed out anterior to the staple line at the rectal stump. The EEA stapler and spike was assembled. The course of the left colon was checked to make sure there was no twist in the mesentery. The stapler was fired and the stapler removed and donuts checked in both ends were noted to be intact. The was the anastomosis was tested under water with rigid proctoscope and no bubbling was noted. I then left a 19 round Jonathan drain. I irrigated around the abdomen to check for bleeding. Once satisfied that there was no active bleeding nor any signs of bowel injury, I deflated the abdomen. All ports were removed. The right lower quadrant 12 mm port site fascia was closed with 0 Vicryl in a mattress fashion. All incisions closed with adolfo including that of the colostomy site after checking for adequate hemostasis. The 19 Jonathan drain secured to the abdomen with 2-0 silk. Sterile gauze dressings were then placed in top of the incision and at the drain site. Patient was then promptly awake and extubated and brought to recovery room stable. Counts of sponges and instruments were verified correct. HARSHA BAKER MD Feb 07, 2019 21:19
[2019-02-08 02:00] VITALS: BP 147/87
[2019-02-08] MEDS: KETOROLAC 30 MG/ML VIAL (J1885) IV PRN ×3 (02:13→20:28)
[2019-02-08] MEDS: HEPARIN SOD (PORCINE) 5000 UNITS/ML VIAL SC SCH ×3 (05:43→23:03)
[2019-02-08 06:00] VITALS: BP 156/90
[2019-02-08 07:48] LABS: BASO % 0.3 % (0.0-1.0); HEMOGLOBIN 16.5 g/dl (13.5-17.5); LYMPH # 2.1 10^3/uL (1.5-4.5); LYMPH % 14.4 % (24.0-44.0); MEAN CORPUSCULAR HEMOGLOBIN 29.5 pg (27.0-33.0); MEAN CORPUSCULAR VOLUME 89.3 fl (80.0-96.0); MONO % 6.5 % (0.0-5.0); NEUTROPHILS # 11.5 10^3/uL (1.8-7.7); NEUTROPHILS % 78.4 % (36.0-66.0); PLATELET COUNT, AUTOMATED 243 10^3/uL (150-450); WHITE BLOOD COUNT 14.6 10^3/uL (4.0-10.0)
[2019-02-08 08:14] LABS: ALT/SGPT 15 U/L (12-78); BLOOD UREA NITROGEN 13 MG/DL (7-18); CALCIUM LEVEL 9.1 MG/DL (8.5-10.1); CARBON DIOXIDE LEVEL 25 MEQ/L (21-32); CHLORIDE LEVEL 107 MEQ/L (98-107); CREATININE FOR GFR 0.79 MG/DL (0.70-1.30); GLOMERULAR FILTRATION RATE > 60.0 (>56); GLUCOSE, FASTING 95 MG/DL (70-100); POTASSIUM SERUM 3.9 MEQ/L (3.5-5.1); SODIUM LEVEL 139 MEQ/L (136-145)
[2019-02-08 08:15] LABS: BILIRUBIN,TOTAL 0.6 MG/DL (0.2-1.0)
[2019-02-08] MEDS: PERCOCET 5MG/325MG TAB PO PRN ×3 (08:41→23:44)
[2019-02-08] MEDS: ALVIMOPAN 12 MG CAPSULE (ENTEREG) PO SCH ×2 (08:41→20:28)
[2019-02-08] MEDS: SENOKOT S TAB PO SCH ×2 (08:41→20:28)
--- NOTE | 2019-02-08 08:51 | IPNPDOC ---
Subjective General Date/Time Seen The patient was seen on 02/08/19 at 08:22. Subject Chief Complaint/History The patient is a 58-year-old male admitted with a reason for visit of Colostomy Status. Patient reports he had some back pains yesterday. His abdominal discomfort is not much more than he anticipated to be and actually feels comfortable. Overnight nursing was a little concerned on giving him more narcotics due to the fact that his respiratory rate is only 15/16 otherwise he is awake and saturating well. He reports he had one episode of vomiting last night. He denies any nausea at this time. Not passing flatus yet. No other overnight events. Current Medications Current Medications Current Medications Acetaminophen (Tylenol Tab) 650 mg Q4HP PRN PO MILD PAIN or TEMP > 101 Last administered on 02/07/19at 18:32; Start 02/07/19 at 14:15 Acetaminophen/ Hydrocodone Bitart ([place], Anexsia 5/325) 1 tab ASDIRECTED PRN PO MILD/MODERATE PAIN (PS 1-7) Last administered on 02/07/19at 14:29; Start 02/07/19 at 14:45; Stop 02/07/19 at 15:45; Status DC Alvimopan (Entereg) 12 mg BID PO Last administered on 02/07/19at 20:39; Start 02/07/19 at 21:00; Stop 02/14/19 at 20:59 Fentanyl Citrate (Sublimaze) 25 mcg Q5MP PRN IV MODERATE PAIN (PS 4-7) Last administered on 02/07/19at 14:51; Start 02/07/19 at 14:45; Stop 02/07/19 at 14:56; Status DC Heparin Sodium (Porcine) (Heparin) 5,000 units Q8H SC Last administered on 02/08/19at 05:43; Start 02/07/19 at 22:00 Hydromorphone HCl (Dilaudid) 0.5 mg Q15M PRN IV MODERATE/SEVERE PAIN (PS 5-10); Start 02/07/19 at 15:00; Status Cancel Ketorolac Tromethamine (ToRADol) 30 mg Q6HP PRN IV MILD/MODERATE PAIN (PS 1-7) Last administered on 02/08/19at 02:13; Start 02/07/19 at 14:15; Stop 02/12/19 at 14:14 Lactated Ringer's 1,000 ml @ 100 mls/hr Q10H IV Last administered on 02/07/19 15:41; Start 02/07/19 at 07:15; Stop 02/07/19 at 21:34; Status DC Lactated Ringer's 1,000 ml @ 100 mls/hr Q10H IV ; Start 02/07/19 at 14:45; Stop 02/07/19 at 15:45; Status DC Meperidine HCl (Demerol) 12.5 mg Q5MP PRN IV SHIVERING; Start 02/07/19 at 15:00; Stop 02/07/19 at 16:00; Status DC Morphine Sulfate (Morphine Sulfate Inj) 4 mg Q2HP PRN IV SEVERE PAIN (PS 8-10) Last administered on 02/07/19 15:41; Start 02/07/19 at 14:15 Ondansetron HCl (ZOFRAN INJection) 4 mg Q6HP PRN IV NAUSEA OR VOMITING Last administered on 02/07/19 21:09; Start 02/07/19 at 14:15 Oxycodone/ Acetaminophen (Percocet 5mg/ 325mg Tablet) 1 tab Q4HP PRN PO MODERATE PAIN (PS 5-7); Start 02/07/19 at 14:15 Oxycodone/ Acetaminophen (Percocet 5mg/ 325mg Tablet) 2 tab Q6HP PRN PO SEVERE PAIN (PS 8-10) Last administered on 02/07/19 17:04; Start 02/07/19 at 14:15 Senna/Docusate Sodium (Senokot S) 1 tab BID PO Last administered on 02/07/19 20:39; Start 02/07/19 at 21:00 Allergies Coded Allergies: MS - No Known Drug Allergy (Verified Allergy, Unknown, 08/23/18) Objective Physical Examination Examination GENERAL APPEARANCE: Looks comfortable. SKIN: Warm and moist. HEENT: Normocephalic, atraumatic. Atkins palpebral conjunctiva, anicteric sclerae. Lips and mucosa appear moist. NECK: Supple, no thyromegaly. No obvious jugular venous distention. LUNGS: Clear to auscultation bilaterally. No wheezing appreciated. HEART: No chest wall abnormalities. Regular rate and rhythm with no murmurs appreciated. ABDOMEN: Abdomen is obese, round, soft, minimally distended. Port site incisions in previous left-sided colostomy incisions are covered with a dry gauze, appears clean and dry with no staining. Left side Jonathan drain with pink serosanguineous fluid. EXTREMITIES: Extremities have no deformities. No edema identified. Vital Signs Vital Signs Date Time Temp Pulse Resp B/P (MAP) Pulse Ox O2 Delivery O2 Flow Rate FiO2 02/08/19 06:00 97.9 61 12 156/90 (112) 97 3.0 I&Os I&O- Last 24 Hours up to 6 AM 02/08/19 06:00 Intake Total 2200 ml Output Total 1365 ml Balance 835 ml NICOLAS drain 105 MLS (85 mL so overnight) Laboratory Data Labs 24H Laboratory Tests 2 02/08/19 06:40: Immature Granulocyte % (Auto) 0.4, White Blood Count 14.6H, Red Blood Count 5.60, Hemoglobin 16.5, Hematocrit 50.0, Mean Corpuscular Volume 89.3, Mean Corpuscular Hemoglobin 29.5, Mean Corpuscular Hemoglobin Concent 33.0, Red Cell Distribution Width 14.5, Platelet Count 243, Neutrophils (%) (Auto) 78.4H, Lymphocytes (%) (Auto) 14.4L, Monocytes (%) (Auto) 6.5H, Eosinophils (%) (Auto) 0.0, Basophils (%) (Auto) 0.3, Neutrophils # (Auto) 11.5H, Lymphocytes # (Auto) 2.1, Monocytes # (Auto) 1.0H, Eosinophils # (Auto) 0.0, Basophils # (Auto) 0.0, Nucleated Red Blood Cells % (auto) 0.0, Anion Gap 7L, Glomerular Filtration Rate > 60.0, Blood Urea Nitrogen 13, Creatinine 0.79, Sodium Level 139, Potassium Level 3.9, Chloride Level 107, Carbon Dioxide Level 25, Calcium Level 9.1, Aspartate Amino Transf (AST/SGOT) 14, Alanine Aminotransferase (ALT/SGPT) 15, Alkaline Phosphatase 91, Total Bilirubin 0.6, Total Protein 7.0, Albumin 3.0L, Albumin/Globulin Ratio 0.75L CBC/BMP Laboratory Tests 02/08/19 06:40 Red Blood Count 5.60, Mean Corpuscular Volume 89.3, Mean Corpuscular Hemoglobin 29.5, Mean Corpuscular Hemoglobin Concent 33.0, Red Cell Distribution Width 14.5, Neutrophils (%) (Auto) 78.4 H, Lymphocytes (%) (Auto) 14.4 L, Monocytes (%) (Auto) 6.5 H, Eosinophils (%) (Auto) 0.0, Basophils (%) (Auto) 0.3, Neutrophils # (Auto) 11.5 H, Lymphocytes # (Auto) 2.1, Monocytes # (Auto) 1.0 H, Eosinophils # (Auto) 0.0, Basophils # (Auto) 0.0, Calcium Level 9.1, Aspartate Amino Transf (AST/SGOT) 14, Alanine Aminotransferase (ALT/SGPT) 15, Alkaline Phosphatase 91, Total Bilirubin 0.6, Total Protein 7.0, Albumin 3.0 L Impression POD1 Laparoscopic assisted reversal of end colostomy, proctocolic anastomosis history of perforated diverticulitis He seems to be doing okay. Review of his labs shows still some slight hemoconcentration. His urine output is adequate but slightly concentrated. His abdomen is only minimally distended. Continue with clear liquids today. Disco ntinue Michael catheter. I instructed them to ablate the hallways and keep upright most of the day. Incentive spirometer is. He is heparin subcutaneous for DVT prophylaxis ordered. He is asking for a nicotine patch. I think this is alright to continue to give him narcotics despite a mildly low respiratory rate seems to be his baseline. He is well awake and comfortable and does not seem to be over narcotized. Continue with Toradol, Entereg. Plan / VTE VTE Prophylaxis Ordered?: Yes Plan / Urinary Catheter Urinary Catheter: D/C JASPAL Dominguez MD Feb 08, 2019 08:22
[2019-02-08] MEDS: NICOTINE 21MG/24HR 1 EA TRANSDERMAL TD SCH (09:27)
[2019-02-08 10:00] VITALS: BP 153/90
[2019-02-08 14:00] VITALS: BP 155/92
[2019-02-08 22:00] VITALS: BP 164/94
[2019-02-08 23:20] VITALS: BP 156/85
[2019-02-09] MEDS: HEPARIN SOD (PORCINE) 5000 UNITS/ML VIAL SC SCH ×3 (05:37→20:31)
[2019-02-09] MEDS: KETOROLAC 30 MG/ML VIAL (J1885) IV PRN ×2 (05:53→06:03)
[2019-02-09 06:00] VITALS: BP 126/80
[2019-02-09 07:16] LABS: BASO # 0.1 10^3/uL (0.0-0.2); BASO % 0.7 % (0.0-1.0); EOS # 0.2 10^3/uL (0.0-0.50); EOS % 1.9 % (0.0-3.0); HEMATOCRIT 47.4 % (42.0-52.0); HEMOGLOBIN 16.1 g/dl (13.5-17.5); LYMPH # 2.2 10^3/uL (1.5-4.5); LYMPH % 21.2 % (24.0-44.0); MEAN CORPUSCULAR HEMOGLOBIN 30.4 pg (27.0-33.0); MEAN CORPUSCULAR VOLUME 89.4 fl (80.0-96.0); MONO # 0.6 10^3/uL (0.0-0.8); MONO % 5.8 % (0.0-5.0); NEUTROPHILS # 7.2 10^3/uL (1.8-7.7); NEUTROPHILS % 70.2 % (36.0-66.0); PLATELET COUNT, AUTOMATED 199 10^3/uL (150-450); WHITE BLOOD COUNT 10.3 10^3/uL (4.0-10.0)
[2019-02-09 07:43] LABS: BLOOD UREA NITROGEN 15 MG/DL (7-18); CARBON DIOXIDE LEVEL 27 MEQ/L (21-32); CHLORIDE LEVEL 107 MEQ/L (98-107); CREATININE FOR GFR 0.72 MG/DL (0.70-1.30); GLOMERULAR FILTRATION RATE > 60.0 (>56); GLUCOSE, FASTING 93 MG/DL (70-100); POTASSIUM SERUM 4.1 MEQ/L (3.5-5.1); SODIUM LEVEL 138 MEQ/L (136-145)
[2019-02-09] MEDS: ALVIMOPAN 12 MG CAPSULE (ENTEREG) PO SCH ×2 (09:12→20:31)
[2019-02-09] MEDS: SENOKOT S TAB PO SCH ×2 (09:13→20:31)
[2019-02-09] MEDS: NICOTINE 21MG/24HR 1 EA TRANSDERMAL TD SCH (09:14)
--- NOTE | 2019-02-09 09:17 | REP ---
Chest x-ray: Two views. History: Decreased oxygen saturation. Comparison chest x-ray: September 12, 2018. Findings: Heart size is borderline. Cardiothoracic ratio today measures 50.7%. Heart size is felt to be unchanged. Pulmonary vasculature is not increased. There are fairly large bullae again noted in the apices bilaterally. There is increased density posteriorly overlying the spine on the lateral radiograph which may be pleural thickening or a small quantity of bilateral pleural fluid. The lateral pleural angles are not blunted. No other evidence of infiltrate. Impression: Increased density posteriorly on the lateral radiograph bilaterally, question small bilateral pleural effusions. Borderline heart size. Large bullae in the apices again noted unchanged. Electronically Signed by Flaco Tapia MD 02/09/2019 03:50 P
[2019-02-09] MEDS: PERCOCET 5MG/325MG TAB PO PRN ×3 (10:24→22:51)
[2019-02-09] MEDS: LR 1,000 ML IV SCH ×2 (10:26→20:31)
--- NOTE | 2019-02-09 13:49 | IPNPDOC ---
Subjective General Date/Time Seen The patient was seen on 02/09/19 at 07:36. Subject Chief Complaint/History The patient is a 58-year-old male admitted with a reason for visit of Colostomy Status. Patient reports a loose bloody BM last night. Nurse reports he desats to 89% overnight while he was asleep, came up to 95% with 3L NC.This morning his sats are up at 95% on room air. He reports minimal discomfort but abdomen still looks distended. He is intermittently passing flatus and has been taking a little bit of clears, trying to lay off the carbonated buzz jose. Denies nausea. Back pain better. He is ambulating the hallways. Current Medications Current Medications Current Medications Acetaminophen (Tylenol Tab) 650 mg Q4HP PRN PO MILD PAIN or TEMP > 101 Last administered on 02/07/19 18:32; Start 02/07/19 at 14:15 Acetaminophen/ Hydrocodone Bitart ([place], Anexsia 5/325) 1 tab ASDIRECTED PRN PO MILD/MODERATE PAIN (PS 1-7) Last administered on 02/07/19at 14:29; Start 02/07/19 at 14:45; Stop 02/07/19 at 15:45; Status DC Alvimopan (Entereg) 12 mg BID PO Last administered on 02/08/19 20:28; Start 02/07/19 at 21:00; Stop 02/14/19 at 20:59 Fentanyl Citrate (Sublimaze) 25 mcg Q5MP PRN IV MODERATE PAIN (PS 4-7) Last administered on 02/07/19at 14:51; Start 02/07/19 at 14:45; Stop 02/07/19 at 14:56; Status DC Heparin Sodium (Porcine) (Heparin) 5,000 units Q8H SC Last administered on 02/09/19at 05:37; Start 02/07/19 at 22:00 Hydromorphone HCl (Dilaudid) 0.5 mg Q15M PRN IV MODERATE/SEVERE PAIN (PS 5-10); Start 02/07/19 at 15:00; Status Cancel Ketorolac Tromethamine (ToRADol) 30 mg Q6HP PRN IV MILD/MODERATE PAIN (PS 1-7) Last administered on 02/09/19at 05:53; Start 02/07/19 at 14:15; Stop 02/12/19 at 14:14 Lactated Ringer's 1,000 ml @ 100 mls/hr Q10H IV Last administered on 02/07/19 15:41; Start 02/07/19 at 07:15; Stop 02/07/19 at 21:34; Status DC Lactated Ringer's 1,000 ml @ 100 mls/hr Q10H IV ; Start 02/07/19 at 14:45; Stop 02/07/19 at 15:45; Status DC Meperidine HCl (Demerol) 12.5 mg Q5MP PRN IV SHIVERING; Start 02/07/19 at 1 5:00; Stop 02/07/19 at 16:00; Status DC Morphine Sulfate (Morphine Sulfate Inj) 4 mg Q2HP PRN IV SEVERE PAIN (PS 8-10) Last administered on 02/07/19 15:41; Start 02/07/19 at 14:15 Nicotine (Nicoderm Cq 21mg) 1 patch DAILY TD Last administered on 02/08/19 09:27; Start 02/08/19 at 09:00 Ondansetron HCl (ZOFRAN INJection) 4 mg Q6HP PRN IV NAUSEA OR VOMITING Last administered on 02/07/19 21:09; Start 02/07/19 at 14:15 Oxycodone/ Acetaminophen (Percocet 5mg/ 325mg Tablet) 1 tab Q4HP PRN PO MO DERATE PAIN (PS 5-7); Start 02/07/19 at 14:15 Oxycodone/ Acetaminophen (Percocet 5mg/ 325mg Tablet) 2 tab Q6HP PRN PO SEVERE PAIN (PS 8-10) Last administered on 02/08/19 23:44; Start 02/07/19 at 14:15 Senna/Docusate Sodium (Senokot S) 1 tab BID PO Last administered on 02/08/19 20:28; Start 02/07/19 at 21:00 Allergies Coded Allergies: No Known Allergies (Unverified , 02/09/19) Objective Physical Examination Examination GENERAL APPEARANCE:looks very comfortable. SKIN: Warm and moist. HEENT: Normocephalic, atraumatic. [place] palpebral conjunctiva, anicteric sclerae. Lips and mucosa appear moist. NECK: Supple, no thyromegaly. No obvious jugular venous distention. LUNGS: Clear to auscultation bilaterally. No wheezing appreciated. HEART: No chest wall abnormalities. Regular rate and rhythm with no murmurs appreciated. ABDOMEN: Abdomen is round, soft, looks more distended today than on my exam yesterday. Soft. Nontender on palpation. left lower quadrant ostomy closure site with intact dressings, clean, dry.. EXTREMITIES: Extremities have no deformities. No edema identified. Vital Signs Vital Signs Date Time Temp Pulse Resp B/P (MAP) Pulse Ox O2 Delivery O2 Flow Rate FiO2 02/09/19 06:00 97.5 65 17 126/80 (95) 97 3.0 I&Os I&O- Last 24 Hours up to 6 AM 02/09/19 06:00 Intake Total 1240 ml Output Total 1130 ml Balance 110 ml NICOLAS 185 mLs (30 overnight) Laboratory Data Labs 24H Laboratory Tests 2 02/09/19 07:04: Immature Granulocyte % (Auto) 0.2, White Blood Count 10.3H, Red Blood Count 5.30, Hemoglobin 16.1, Hematocrit 47.4, Mean Corpuscular Volume 89.4, Mean Corpuscular Hemoglobin 30.4, Mean Corpuscular Hemoglobin Concent 34.0, Red Cell Distribution Width 14.4, Platelet Count 199, Neutrophils (%) (Auto) 70.2H, Lymphocytes (%) (Auto) 21.2L, Monocytes (%) (Auto) 5.8H, Eosinophils (%) (Auto) 1.9, Basophils (%) (Auto) 0.7, Neutrophils # (Auto) 7.2, Lymphocytes # (Auto) 2.2, Monocytes # (Auto) 0.6, Eosinophils # (Auto) 0.2, Basophils # (Auto) 0.1, Nucleated Red Blood Cells % (auto) 0.0 CBC/BMP Laboratory Tests 02/09/19 07:04 Red Blood Count 5.30, Mean Corpuscular Volume 89.4, Mean Corpuscular Hemoglobin 30.4, Mean Corpuscular Hemoglobin Concent 34.0, Red Cell Distribution Width 14.4, Neutrophils (%) (Auto) 70.2 H, Lymphocytes (%) (Auto) 21.2 L, Monocytes (%) (Auto) 5.8 H, Eosinophils (%) (Auto) 1.9, Basophils (%) (Auto) 0.7, Neutrophils # (Auto) 7.2, Lymphocytes # (Auto) 2.2, Monocytes # (Auto) 0.6, Eosinophils # (Auto) 0.2, Basophils # (Auto) 0.1 Impression POD2 Laparoscopic Reversal of colostomy prior history of perforated diverticulitis I think the desaturations is from possible sleep apnea given his body habitus. He looks comfortable now and sats are good on room air when awake and upright. I will get cxr to gauge lung expansion/atelectasis. His labs were reviewed with him and his leukocytosis is normalizing. Continue with incentive spirometer. I think he still is on the dry side. Given that he is also mildly distended, will continue IVF for today. He has been ambulating the hallways. He was advised to continue this today. Ensure clears for some protein intake. heparin for dvt prophylaxis. check CXR incentive spirometers Plan / VTE VTE Prophylaxis Ordered?: Yes Plan / Urinary Catheter Urinary Catheter: D/C JASPAL Dominguez MD Feb 09, 2019 07:38
[2019-02-09 14:00] VITALS: BP 145/87
[2019-02-09 22:00] VITALS: BP 130/82
[2019-02-10] MEDS: HEPARIN SOD (PORCINE) 5000 UNITS/ML VIAL SC SCH ×3 (05:35→20:22)
[2019-02-10] MEDS: LR 1,000 ML IV SCH (05:35)
[2019-02-10 06:00] VITALS: BP 141/76
[2019-02-10 06:56] LABS: BASO # 0.1 10^3/uL (0.0-0.2); BASO % 0.6 % (0.0-1.0); EOS # 0.3 10^3/uL (0.0-0.50); EOS % 3.4 % (0.0-3.0); HEMATOCRIT 46.1 % (42.0-52.0); HEMOGLOBIN 15.7 g/dl (13.5-17.5); LYMPH # 1.9 10^3/uL (1.5-4.5); LYMPH % 21.7 % (24.0-44.0); MEAN CORPUSCULAR HEMOGLOBIN 29.6 pg (27.0-33.0); MEAN CORPUSCULAR HGB CONC 34.1 g/dl (32.0-36.5); MEAN CORPUSCULAR VOLUME 86.8 fl (80.0-96.0); MONO # 0.6 10^3/uL (0.0-0.8); MONO % 6.5 % (0.0-5.0); NEUTROPHILS # 5.8 10^3/uL (1.8-7.7); NEUTROPHILS % 67.4 % (36.0-66.0); PLATELET COUNT, AUTOMATED 209 10^3/uL (150-450); RED BLOOD COUNT 5.31 10^6/uL (4.30-6.10); WHITE BLOOD COUNT 8.5 10^3/uL (4.0-10.0)
[2019-02-10 07:23] LABS: BLOOD UREA NITROGEN 10 MG/DL (7-18); CALCIUM LEVEL 9.3 MG/DL (8.5-10.1); CARBON DIOXIDE LEVEL 26 MEQ/L (21-32); CHLORIDE LEVEL 106 MEQ/L (98-107); CREATININE FOR GFR 0.61 MG/DL (0.70-1.30); GLOMERULAR FILTRATION RATE > 60.0 (>56); GLUCOSE, FASTING 87 MG/DL (70-100); POTASSIUM SERUM 3.8 MEQ/L (3.5-5.1); SODIUM LEVEL 139 MEQ/L (136-145)
--- NOTE | 2019-02-10 08:28 | IPNPDOC ---
Subjective General Date/Time Seen The patient was seen on 02/10/19 at 08:01. Subject Chief Complaint/History Patient reports he's feeling well. He is passing a lot of flatus and has been having intermittent bouts of loose bowel movements in between in small amounts. He is ambulating the hallways. He denies any shortness of breath, chest pain, abdominal discomfort. Current Medications Current Medications Current Medications Acetaminophen (Tylenol Tab) 650 mg Q4HP PRN PO MILD PAIN or TEMP > 101 Last administered on 02/07/19 18:32; Start 02/07/19 at 14:15 Acetaminophen/ Hydrocodone Bitart ([place], Anexsia 5/325) 1 tab ASDIRECTED PRN PO MILD/MODERATE PAIN (PS 1-7) Last administered on 02/07/19 14:29; Start 02/07/19 at 14:45; Stop 02/07/19 at 15:45; Status DC Alvimopan (Entereg) 12 mg BID PO Last administered on 02/09/19 20:31; Start 02/07/19 at 21:00; Stop 02/14/19 at 20:59 Fentanyl Citrate (Sublimaze) 25 mcg Q5MP PRN IV MODERATE PAIN (PS 4-7) Last administered on 02/07/19 14:51; Start 02/07/19 at 14:45; Stop 02/07/19 at 14:56; Status DC Heparin Sodium (Porcine) (Heparin) 5,000 units Q8H SC Last administered on 02/10/19at 05:35; Start 02/07/19 at 22:00 Hydromorphone HCl (Dilaudid) 0.5 mg Q15M PRN IV MODERATE/SEVERE PAIN (PS 5-10); Start 02/07/19 at 15:00; Status Cancel Ketorolac Tromethamine (ToRADol) 30 mg Q6HP PRN IV MILD/MODERATE PAIN (PS 1-7) Last administered on 02/09/19at 05:53; Start 02/07/19 at 14:15; Stop 02/12/19 at 14:14 Lactated Ringer's 1,000 ml @ 100 mls/hr Q10H IV Last administered on 02/07/19 15:41; Start 02/07/19 at 07:15; Stop 02/07/19 at 21:34; Status DC Lactated Ringer's 1,000 ml @ 100 mls/hr Q10H IV ; Start 02/07/19 at 14:45; Stop 02/07/19 at 15:45; Status DC Lactated Ringer's 1,000 ml @ 100 mls/hr Q10H IV Last administered on 02/10/19at 05:35; Start 02/09/19 at 10:00 Meperidine HCl (Demerol) 12.5 mg Q5MP PRN IV SHIVERING; Start 02/07/19 at 15:00; Stop 02/07/19 at 16:00; Status DC Morphine Sulfate (Morphine Sulfate Inj) 4 mg Q2HP PRN IV SEVERE PAIN (PS 8-10) Last administered on 02/07/19 15:41; Start 02/07/19 at 14:15 Nicotine (Nicoderm Cq 21mg) 1 patch DAILY TD Last administered on 02/09/19 09:14; Start 02/08/19 at 09:00 Ondansetron HCl (ZOFRAN INJection) 4 mg Q6HP PRN IV NAUSEA OR VOMITING Last administered on 02/07/19 21:09; Start 02/07/19 at 14:15 Oxycodone/ Acetaminophen (Percocet 5mg/ 325mg Tablet) 1 tab Q4HP PRN PO MODERATE PAIN (PS 5-7) Last administered on 02/09/19 22:51; Start 02/07/19 at 14:15 Oxycodone/ Acetaminophen (Percocet 5mg/ 325mg Tablet) 2 tab Q6HP PRN PO SEVERE PAIN (PS 8-10) Last administered on 02/08/19 23:44; Start 02/07/19 at 14:15 Senna/Docusate Sodium (Senokot S) 1 tab BID PO Last administered on 02/09/19 20:31; Start 02/07/19 at 21:00 Allergies Coded Allergies: No Known Allergies (Unverified , 02/09/19) Objective Physical Examination Examination GENERAL APPEARANCE: Looks comfortable. SKIN: Warm and moist. HEENT: Normocephalic, atraumatic. [place] palpebral conjunctiva, anicteric sclerae. Lips and mucosa appear moist. NECK: Supple, no thyromegaly. No obvious jugular venous distention. LUNGS: Clear to auscultation bilaterally. No wheezing appreciated. HEART: No chest wall abnormalities. Regular rate and rhythm with no murmurs appreciated. ABDOMEN: Abdomen is round, soft, he is fully decompressed and non-distended at this point. Then midline abdominal wall associated with the diastases. Left lower quadrant colostomy site closed with adolfo, multiple laparoscopic port sites at the left upper quadrant, right upper quadrant, right lower quadrant. Left lower quadrant drain site still with serosanguineous fluid nontender on palpation. EXTREMITIES: No extremity edema. Vital Signs Vital Signs Date Time Temp Pulse Resp B/P (MAP) Pulse Ox O2 Delivery O2 Flow Rate FiO2 02/10/19 06:00 98.0 62 16 141/76 (97) 91 02/09/19 06:00 3.0 I&Os I&O- Last 24 Hours up to 6 AM 02/10/19 05:59 Intake Total 3720 ml Output Total 90 ml Balance 3630 ml Laboratory Data Labs 24H Laboratory Tests 2 02/10/19 06:24: Immature Granulocyte % (Auto) 0.4, White Blood Count 8.5, Red Blood Count 5.31, Hemoglobin 15.7, Hematocrit 46.1, Mean Corpuscular Volume 86.8, Mean Corpuscular Hemoglobin 29.6, Mean Corpuscular Hemoglobin Concent 34.1, Red Cell Distribution Width 14.1, Platelet Count 209, Neutrophils (%) (Auto) 67.4H, Lymphocytes (%) (Auto) 21.7L, Monocytes (%) (Auto) 6.5H, Eosinophils (%) (Auto) 3.4H, Basophils (%) (Auto) 0.6, Neutrophils # (Auto) 5.8, Lymphocytes # (Auto) 1.9, Monocytes # (Auto) 0.6, Eosinophils # (Auto) 0.3, Basophils # (Auto) 0.1, Nucleated Red Blood Cells % (auto) 0.0, Anion Gap 7L, Glomerular Filtration Rate > 60.0, Blood Urea Nitrogen 10, Creatinine 0.61L, Sodium Level 139, Potassium Level 3.8, Chloride Level 106, Carbon Dioxide Level 26, Calcium Level 9.3 CBC/BMP Laboratory Tests 02/10/19 06:24 Red Blood Count 5.31, Mean Corpuscular Volume 86.8, Mean Corpuscular Hemoglobin 29.6, Mean Corpuscular Hemoglobin Concent 34.1, Red Cell Distribution Width 14.1, Neutrophils (%) (Auto) 67.4 H, Lymphocytes (%) (Auto) 21.7 L, Monocytes (%) (Auto) 6.5 H, Eosinophils (%) (Auto) 3.4 H, Basophils (%) (Auto) 0.6, Neutrophils # (Auto) 5.8, Lymphocytes # (Auto) 1.9, Monocytes # (Auto) 0.6, Eosinophils # (Auto) 0.3, Basophils # (Auto) 0.1, Calcium Level 9.3 Impression POD3 laparoscopic reversal of colostomy He is doing very well advance diet. I told him to pick him to send try softer, processed foods first. Objective of P2 converted into high-fiber diet at home. DC IV fluids Continue ambulation to the hallways Continue with incentive spirometer is Continue with heparin subcutaneous for DVT prophylaxis Anticipate if he does okay with food they'll be able to go home the next couple of days. Plan / VTE VTE Prophylaxis Ordered?: Yes Plan / Urinary Catheter Urinary Catheter: D/C JASPAL Dominguez MD Feb 10, 2019 08:02
[2019-02-10] MEDS: NICOTINE 21MG/24HR 1 EA TRANSDERMAL TD SCH (09:37)
[2019-02-10] MEDS: ALVIMOPAN 12 MG CAPSULE (ENTEREG) PO SCH ×2 (09:37→20:21)
[2019-02-10] MEDS: SENOKOT S TAB PO SCH ×2 (09:37→20:21)
[2019-02-10] MEDS: PERCOCET 5MG/325MG TAB PO PRN ×3 (09:38→20:21)
[2019-02-10 14:00] VITALS: BP 133/76
[2019-02-10 22:00] VITALS: BP 140/72
[2019-02-11] MEDS: PERCOCET 5MG/325MG TAB PO PRN ×2 (02:23→08:25)
[2019-02-11] MEDS: HEPARIN SOD (PORCINE) 5000 UNITS/ML VIAL SC SCH (05:39)
[2019-02-11 06:00] VITALS: BP 128/84
[2019-02-11 06:12] LABS: BASO # 0.1 10^3/uL (0.0-0.2); BASO % 0.7 % (0.0-1.0); EOS # 0.4 10^3/uL (0.0-0.50); EOS % 4.2 % (0.0-3.0); HEMATOCRIT 46.9 % (42.0-52.0); HEMOGLOBIN 15.9 g/dl (13.5-17.5); LYMPH # 2.3 10^3/uL (1.5-4.5); LYMPH % 27.4 % (24.0-44.0); MEAN CORPUSCULAR HGB CONC 33.9 g/dl (32.0-36.5); MEAN CORPUSCULAR VOLUME 88.5 fl (80.0-96.0); MONO # 0.6 10^3/uL (0.0-0.8); MONO % 6.8 % (0.0-5.0); NEUTROPHILS % 60.7 % (36.0-66.0); PLATELET COUNT, AUTOMATED 222 10^3/uL (150-450); WHITE BLOOD COUNT 8.3 10^3/uL (4.0-10.0)
[2019-02-11 06:34] LABS: BLOOD UREA NITROGEN 13 MG/DL (7-18); CALCIUM LEVEL 9.5 MG/DL (8.5-10.1); CARBON DIOXIDE LEVEL 25 MEQ/L (21-32); CHLORIDE LEVEL 107 MEQ/L (98-107); CREATININE FOR GFR 0.74 MG/DL (0.70-1.30); GLOMERULAR FILTRATION RATE > 60.0 (>56); GLUCOSE, FASTING 90 MG/DL (70-100); POTASSIUM SERUM 3.9 MEQ/L (3.5-5.1); SODIUM LEVEL 139 MEQ/L (136-145)
[2019-02-11] MEDS: ALVIMOPAN 12 MG CAPSULE (ENTEREG) PO SCH (08:12)
[2019-02-11] MEDS: NICOTINE 21MG/24HR 1 EA TRANSDERMAL TD SCH (08:12)
[2019-02-11] MEDS: SENOKOT S TAB PO SCH (08:13)
[2019-02-11] MEDS ORDERED: PERCOCET PO (09:07)
--- NOTE | 2019-02-11 09:12 | DS.PDOC ---
Discharge Summary General Date of Admission Feb 07, 2019 at 07:09 Date of Discharge February 11, 2019 Attending Physician: JASPAL MUELLER MD Discharge Summary PROCEDURES PERFORMED DURING STAY: Laparoscopic Assisted Reversal of Colostomy, proctocolic anastomosis, takedown of splenic flexure. ADMITTING DIAGNOSES: 1. colostomy status 2. history of perforated diverticulitis. DISCHARGE DIAGNOSES: 1. colostomy status s/p reversal of colostomy with proctocolic anastomosis 2. history of perforated diverticulitis. COMPLICATIONS/CHIEF COMPLAINT: Colostomy Status. HISTORY OF PRESENT ILLNESS: Patient is brought to the OR for elective reversal of his colostomy . HOSPITAL COURSE: Patient was admitted to the [facility] after undergoing reversal of his colostomy. He did well from his surgery perioperatively. There was a little concerned about his respiratory rate dropping down slightly when he was sleeping but he has maintained his sats. He has minimal discomfort from the incision sites this is well-controlled initially with combination of morphine and IV Toradol. I allowed him clear liquids on the night of the surgery. The following day he was slightly more distended but he also has been starting to pass gas. We'll continue him on clear liquids. He was ambulating to the hallways regularly. He was maintained on heparin subcutaneous for DVT prophylaxis. On postop day 2 he started having bowel functions he was subsequently advanced to regular food by postop day 3 and postop day 4. His postoperative course has been relatively straightforward. On discharge he is having soft semi-formed stools, passing flatus and has been tolerating regular foods. His drain which was putting out serosanguineous fluid is gradually come down and is to be discontinued prior to him going home. DISCHARGE MEDICATIONS: Please see below. ALLERGIES: Please see below. PHYSICAL EXAMINATION ON DISCHARGE: VITAL SIGNS: Please see below. GENERAL: Comfortable HEENT: Normocephalic, atraumatic, pink palpebral conjunctivae NECK: Supple, no thyromegaly, no lymph nodes the, no jugular venous distention CARDIOVASCULAR EXAMINATION: Regular heart rate and rhythm, no murmurs RESPIRATORY EXAMINATION: Clear breath sounds auscultation bilaterally no wheezing ABDOMINAL EXAMINATION: Round, soft, nondistended. His a left lower quadrant incision from his previous colostomy which is closed with adolfo it appears dry without any erythema or drainage. He has several 5 mm port sites over the left upper quadrant, right upper quadrant, left lower quadrant area. He has been coming off right lower quadrant area which has a light pink serosanguineous fluid drainage in the bulb. EXTREMITIES: No extremity edema SKIN: No skin rashes, no wound infection, no jaundice NEUROLOGICAL EXAMINATION: Awake, alert, oriented. No extremity weakness, numbness PSYCHIATRIC EXAMINATION: Mood and affect is normal LABORATORY DATA: Please see below. IMAGING: CXR PROGNOSIS: good ACTIVITY: light activity until evaluated in 2 weeks. DIET: high fiber diet DISCHARGE PLAN: Patient is discharged home on prn percocets for pain control. Wound care on incisions discussed. He will follow up in 2 weeks for removal of adolfo DISPOSITION: . DISCHARGE INSTRUCTIONS: 1. as above 2. Follow up with me in 2 weeks 3. May shower 4. Pat incisions until dry 5. May leave incisions open to air, place dry gauze on drain site and change daily until dry . ITEMS TO FOLLOWUP ON ON OUTPATIENT: 1. adolfo remoaval. DISCHARGE CONDITION: improved. TIME SPENT ON DISCHARGE: Greater than 30 minutes. Vital Signs/I&Os Vital Signs Date Time Temp Pulse Resp B/P (MAP) Pulse Ox O2 Delivery O2 Flow Rate FiO2 02/11/19 08:25 18 02/11/19 06:00 96.5 60 128/84 (99) 95 02/09/19 06:00 3.0 I&O- Last 24 Hours up to 6 AM 02/11/19 06:00 Intake Total 2280 ml Output Total 1530 ml Balance 750 ml Laboratory Data Labs 24H Laboratory Tests 2 02/11/19 05:34: Immature Granulocyte % (Auto) 0.2, White Blood Count 8.3, Red Blood Count 5.30, Hemoglobin 15.9, Hematocrit 46.9, Mean Corpuscular Volume 88.5, Mean Corpuscular Hemoglobin 30.0, Mean Corpuscular Hemoglobin Concent 33.9, Red Cell Distribution Width 14.1, Platelet Count 222, Neutrophils (%) (Auto) 60.7, Lymphocytes (%) (A uto) 27.4, Monocytes (%) (Auto) 6.8H, Eosinophils (%) (Auto) 4.2H, Basophils (%) (Auto) 0.7, Neutrophils # (Auto) 5.0, Lymphocytes # (Auto) 2.3, Monocytes # (Auto) 0.6, Eosinophils # (Auto) 0.4, Basophils # (Auto) 0.1, Nucleated Red Blood Cells % (auto) 0.0, Anion Gap 7L, Glomerular Filtration Rate > 60.0, Blood Urea Nitrogen 13, Creatinine 0.74, Sodium Level 139, Potassium Level 3.9, Chloride Level 107, Carbon Dioxide Level 25, Calcium Level 9.5 CBC/BMP Laboratory Tests 02/11/19 05:34 Red Blood Count 5.30, Mean Corpuscular Volume 88.5, Mean Corpuscular Hemoglobin 30.0, Mean Corpuscular Hemoglobin Concent 33.9, Red Cell Distribution Width 14.1, Neutrophils (%) (Auto) 60.7, Lymphocytes (%) (Auto) 27.4, Monocytes (%) (Auto) 6.8 H, Eosinophils (%) (Auto) 4.2 H, Basophils (%) (Auto) 0.7, Neutrophils # (Auto) 5.0, Lymphocytes # (Auto) 2.3, Monocytes # (Auto) 0.6, Eosinophils # (Auto) 0.4, Basophils # (Auto) 0.1, Calcium Level 9.5 Discharge Medications Scheduled PRN Oxycodone/Acetaminophen (Percocet 5MG/325MG Tablet) 1 Tab Tab, 1-2 TAB PO Q6HP PRN for MODERATE PAIN (PS 5-7) Allergies Coded Allergies: No Known Allergies (Unverified , 02/09/19) JASPAL MUELLER MD Feb 11, 2019 09:12
== END 2019-02-11 11:15 | disposition home or self-care (01) | DRG 221 ==
LOC: M OR 07:09 → M MS5PR 15:30
PROVIDERS: ADMIT Surgery; ATTEND Surgery
PROC: 0DNU4ZZ Release Omentum, Percutaneous Endoscopic Approach (ICD-10-PCS; 2019-02-07)
PROC: 0DBM4ZZ Excision of Descending Colon, Percutaneous Endoscopic Approach (ICD-10-PCS; principal; 2019-02-07 08:30)
DX: Z43.3 Encounter for attention to colostomy (principal); J43.1 Panlobular emphysema; K42.9 Umbilical hernia without obstruction or gangrene; K66.0 Peritoneal adhesions (postprocedural) (postinfection); F17.210 Nicotine dependence, cigarettes, uncomplicated; E78.5 Hyperlipidemia, unspecified; Z88.8 Allergy status to other drugs, medicaments and biological substances

== ENCOUNTER → 2020-04-05 | Outpatient (CLI) | payer BC ==
[~2020-04-05] MED LIST changes: -MAGNSOL18 PO; +MAGNSOL2 PO; +METR-265; +NEOM500T; +SUPRSOL2
== END ==
LOC: M LABSMTC 12:19
PROVIDERS: ATTEND Family Medicine
DX: Z11.59 Encounter for screening for other viral diseases (principal)

== ENCOUNTER → 2023-05-21 | Outpatient (CLI) | payer BC, OTHER | LOC: M RAD 07:29 | PROVIDERS: ATTEND Nurse Practitioner Adult Health | DX: R74.01 Elevation of levels of liver transaminase levels (principal) ==

== ENCOUNTER → 2024-06-27 | Outpatient (CLI) | payer OTHER | LOC: M RAD 08:34 | PROVIDERS: ATTEND Nurse Practitioner | DX: Z12.2 Encounter for screening for malignant neoplasm of respiratory organs (principal); F17.211 Nicotine dependence, cigarettes, in remission ==